=== PATIENT | female | born 1990 | race Caucasian/White ===

== ENCOUNTER 2017-01-13 20:39 | Emergency (ER) | payer OTHER ==
[~2017-01-13] VITALS: Ht 157.5 cm; Wt 36.0 kg
[2017-01-13 20:41] VITALS: BP 129/99; PULSE 95; RESP 16; TEMP 99; O2SAT 100
--- NOTE | 2017-01-13 21:49 | PD ---
HPI Chief Complaint: Eye Problems/Injury Time Seen by Provider: 21:37 Travel History International Travel<30 days: No Contact w/Intl Traveler<30days: No Traveled to known affect area: No History of Present Illness HPI Patient is a 26-year-old female who presents to emergency room with multiple complaints. Patient reports that she thinks that she may have a stye in her left eye, reports that her eye is feeling much better but would like it evaluated. Patient denies any vision changes, denies any headache or dizziness at this time. Patient denies any blurred vision, photophobia, diplopia, drainage, redness, FB sensation, pain or tearing, there are no blind spots or visual changes. Patient denies any Reports that she does not wear glasses or contacts. Patient also reports that her left ear feels itchy, reports that this has been ongoing for the past few months. Reports no drainage, no fever/ chills. Reports "I just want my ear looked at." Patient denies sore throat, patient denies any cough or congestion. Patient with no other complaints. PFSH Past Medical History Medical History: Denies Significant Hx Tetanus Vaccination: < 5 Years ?: Not LMP: CURRENT Past Surgical History Surgical History: No Previous Surgery Social History Alcohol Use: No Tobacco Use: No Substance Use: No Allergies-Medications (Allergen,Severity, Reaction): Coded Allergies: No Known Allergies (Unverified , 01/13/17) Review of Systems General / Constitutional: No: Fever Eyes: No: Diploplia, Blurred Vision, Photophobia, Drainage, Redness, Foreign Body Sensation, Pain, Tearing, Blind Spots, Visual changes, Blindness HENT: Positive: Earache, No: Headaches, Lightheadedness, Sore Throat, Rhinitis , Rhinorrhea, Congestion, Nosebleed, Neck Pain, Masses, Gingival Bleeding, Dental Difficulties, Ear Discharge Cardiovascular: No: Chest Pain or Discomfort Respiratory: No: Shortness of Breath Gastrointestinal: No: Abdominal Pain Genitourinary: No: Dysuria Musculoskeletal: No: Pain Skin: No Rash Neurologic: No: Weakness Psychiatric: No: Depression Endocrine: No: Polydipsia Hematologic/Lymphatic: No: Easy Bruising Physical Exam Narrative GENERAL: Well-nourished, well-developed patient. SKIN: Focused skin assessment warm/dry. HEAD: Normocephalic. EYES: No scleral icterus. No injection or drainage. No hyphema or hypopyon, EOMI, no redness or erythema EARS: NO redness or drainage or signs of infection, TM intact with no erythema or bulging NECK: Supple, trachea midline. No JVD or lymphadenopathy. CARDIOVASCULAR: Regular rate and rhythm without murmurs, gallops, or rubs. RESPIRATORY: Breath sounds equal bilaterally. No accessory muscle use. GASTROINTESTINAL: Abdomen soft, non-tender, nondistended. MUSCULOSKELETAL: No cyanosis, or edema. BACK: Nontender without obvious deformity. No CVA tenderness. Data Data Last Documented VS Vital Signs Date Time Temp Pulse Resp B/P (MAP) Pulse Ox O2 Delivery O2 Flow Rate FiO2 01/13/17 20:41 99.0 95 16 129/99 (109) 100 Room Air MDM Medical Decision Making Medical Screen Exam Complete: Yes Emergency Medical Condition: Yes Medical Record Reviewed: Yes Interpretation(s) Vital Signs Date Time Temp Pulse Resp B/P (MAP) Pulse Ox O2 Delivery O2 Flow Rate FiO2 01/13/17 20:41 99.0 95 16 129/99 (109) 100 Room Air Differential Diagnosis otitis media, viral infection, allergic reaction Narrative Course 26-year-old female with no obvious injury since her eyes, there are no signs of infection to her ears. Patient with a benign exam. Patient will follow up with her pcp and will return to ER as needed. There are no obvious signs of infection at this time. Patient does not require antibiotics. Diagnosis Primary Impression: Ear ache Additional Instructions: Please follow-up with your primary care doctor in 2-3 days Return to ER as needed Disposition: 01 DISCHARGE HOME Condition: Stable Sandra Jimenez DO Jan 13, 2017 21:49
== END 2017-01-13 21:59 | disposition home or self-care (01) ==
LOC: EDSEX 20:39 → NEPD 20:39
DX: H92.09 Otalgia, unspecified ear (principal); H57.9 Unspecified disorder of eye and adnexa
CPT/HCPCS: 99281

== ENCOUNTER 2017-01-15 09:20 | Emergency (ER) | payer OTHER ==
[~2017-01-15] VITALS: Ht 152.4 cm; Wt 42.0 kg
[2017-01-15 09:40] VITALS: BP 128/71; PULSE 92; RESP 17; TEMP 98.2; O2SAT 100
[2017-01-15 10:08] LABS: AUTOMATED NEUTROPHIL # 7.4 TH/MM3 (1.8-7.7); BASOPHIL # 0.1 TH/MM3 (0-0.2); BASOPHIL % 0.7 % (0.0-2.0); EOSINOPHIL # 0.1 TH/MM3 (0-0.4); EOSINOPHIL % 0.8 % (0.0-4.0); HEMATOCRIT 40.7 % (35.0-46.0); HEMO FLAGS DIFF FINAL; LYMPH % 27.3 % (9.0-44.0); MEAN CELL VOLUME 87.9 FL (80.0-100.0); MEAN CORPUSCULAR HEMOGLOBIN 28.8 PG (27.0-34.0); MEAN CORPUSCULAR HGB CONC 32.8 % (32.0-36.0); MONO % 5.1 % (0.0-8.0); NEUT % 66.1 % (16.0-70.0); PLATELET COUNT 315 TH/MM3 (150-450); RED BLOOD COUNT 4.63 MIL/MM3 (4.00-5.30); RED CELL DISTRIBUTION WIDTH 13.7 % (11.6-17.2); WHITE BLOOD COUNT 11.2 TH/MM3 (4.0-11.0)
--- NOTE | 2017-01-15 10:25 | PD ---
HPI Chief Complaint: Alcohol/Drug Intoxication Time Seen by Provider: 10:08 Travel History International Travel<30 days: No Contact w/Intl Traveler<30days: No Traveled to known affect area: No History of Present Illness HPI Patient is a 26-year-old female brought to the emergency room by EMS under act. Reports that patient was found with socks on, reports that she refused to answer any questions. Reports concerns that she appears to be intoxicated. Patient this time denies suicidal or homicidal ideations. Patient denies use of drugs or alcohol. Patient with no complaints at this time. 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) ?: Unknown Past Surgical History Surgical History: No Previous Surgery Social History Alcohol Use: No Tobacco Use: No Substance Use: No Allergies-Medications (Allergen,Severity, Reaction): Coded Allergies: No Known Allergies (Unverified , 01/13/17) Review of Systems General / Constitutional: No: Fever Eyes: No: Visual changes HENT: No: Headaches Cardiovascular: No: Chest Pain or Discomfort Respiratory: No: Shortness of Breath Gastrointestinal: No: Abdominal Pain Genitourinary: No: Dysuria Musculoskeletal: No: Pain Skin: No Rash Neurologic: No: Weakness Psychiatric: No: Depression Endocrine: No: Polydipsia Hematologic/Lymphatic: No: Easy Bruising Physical Exam Narrative GENERAL: NAD SKIN: Focused skin assessment warm/dry. HEAD: Atraumatic. Normocephalic. EYES: Pupils equal and round. No scleral icterus. No injection or drainage. ENT: No nasal bleeding or discharge. Mucous membranes pink and moist. NECK: Trachea midline. No JVD. CARDIOVASCULAR: Regular rate and rhythm. No murmur appreciated. RESPIRATORY: No accessory muscle use. Clear to auscultation. Breath sounds equal bilaterally. GASTROINTESTINAL: Abdomen soft, non-tender, nondistended. Hepatic and splenic margins not palpable. MUSCULOSKELETAL: No obvious deformities. No clubbing. No cyanosis. No edema. NEUROLOGICAL: Awake and alert. No obvious cranial nerve deficits. Motor grossly within normal limits. Normal speech. PSYCHIATRIC: Flat mood and affect, denies si/hi Data Data Last Documented VS Vital Signs Date Time Temp Pulse Resp B/P (MAP) Pulse Ox O2 Delivery O2 Flow Rate FiO2 01/15/17 09:40 98.2 92 17 128/71 (90) 100 Orders Orders Complete Blood Count With Diff (01/15/17 09:30) Comprehensive Metabolic Panel (01/15/17 09:30) Ed Urine Pregnancytest Poc (01/15/17 09:30) Psych Screen (01/15/17 09:30) Drug Screen, Random Urine (01/15/17 09:30) Alcohol (Ethanol) (01/15/17 09:30) Salicylates (Aspirin) (01/15/17 09:30) Tylenol (Acetaminophen) (01/15/17 09:30) Labs Laboratory Tests Test 01/15/17 09:54 White Blood Count 11.2 TH/MM3 Red Blood Count 4.63 MIL/MM3 Hemoglobin 13.3 GM/DL Hematocrit 40.7 % Mean Corpuscular Volume 87.9 FL Mean Corpuscular Hemoglobin 28.8 PG Mean Corpuscular Hemoglobin Concent 32.8 % Red Cell Distribution Width 13.7 % Platelet Count 315 TH/MM3 Mean Platelet Volume 8.4 FL Neutrophils (%) (Auto) 66.1 % Lymphocytes (%) (Auto) 27.3 % Monocytes (%) (Auto) 5.1 % Eosinophils (%) (Auto) 0.8 % Basophils (%) (Auto) 0.7 % Neutrophils # (Auto) 7.4 TH/MM3 Lymphocytes # (Auto) 3.0 TH/MM3 Monocytes # (Auto) 0.6 TH/MM3 Eosinophils # (Auto) 0.1 TH/MM3 Basophils # (Auto) 0.1 TH/MM3 CBC Comment DIFF FINAL Differential Comment Blood Urea Nitrogen 11 MG/DL Creatinine 0.58 MG/DL Random Glucose 102 MG/DL Total Protein 8.5 GM/DL Albumin 4.5 GM/DL Calcium Level 9.2 MG/DL Alkaline Phosphatase 60 U/L Aspartate Amino Transf (AST/SGOT) 85 U/L Alanine Aminotransferase (ALT/SGPT) 39 U/L Total Bilirubin 0.7 MG/DL Sodium Level 138 MEQ/L Potassium Level 4.4 MEQ/L Chloride Level 105 MEQ/L Carbon Dioxide Level 25.4 MEQ/L Anion Gap 8 MEQ/L Estimat Glomerular Filtration Rate 125 ML/MIN Salicylates Level 1.8 MG/DL Acetaminophen Level LESS THAN 2.0 MCG/ML Ethyl Alcohol Level LESS THAN 3 MG/DL MDM Medical Decision Making Medical Screen Exam Complete: Yes Emergency Medical Condition: Yes Medical Record Reviewed: Yes Interpretation(s) Vital Signs Date Time Temp Pulse Resp B/P (MAP) Pulse Ox O2 Delivery O2 Flow Rate FiO2 01/15/17 09:40 98.2 92 17 128/71 (90) 100 Differential Diagnosis Drug abuse Narrative Course Plan to monitor patient as she has no complaints at this time. Denies si/hi. CBC & BMP Diagram 01/15/17 09:54 Total Protein 8.5 H, Albumin 4.5, Calcium Level 9.2, Alkaline Phosphatase 60, Aspartate Amino Transf (AST/SGOT) 85 H, Alanine Aminotransferase (ALT/SGPT) 39, Total Bilirubin 0.7 Tox screen: Salicylate 1.8 Acetaminophen less than 2.0 Ethyl alcohol less than 3.0 Patient refusing to give urine sample. Patient is alert and oriented 3, she is ambulating in the emergency room without any difficulty. Patient has been monitored for 5.5 hours. Patient safe to be discharged to home with outpatient follow up. Patient denies si/hi at discharge. Patient with no complaints. Diagnosis Primary Impression: Drug abuse Patient Instructions: General Instructions Additional Instructions: Please follow up with your primary care doctor in 1-2 days Return to the ER if symptoms worsen or progress Return to the ER as needed Please stop using drugs Disposition: 01 DISCHARGE HOME Condition: Stable Sandra Jimenez DO Jan 15, 2017 10:25
[2017-01-15 10:39] LABS: ALKALINE PHOSPHATASE 60 U/L (45-117); ALT (GPT) 39 U/L (10-53); TOTAL BILIRUBIN ADULT 0.7 MG/DL (0.2-1.0)
[2017-01-15 10:41] LABS: ACETAMINOPHEN LESS THAN 2.0 MCG/ML (10.0-30.0); ALCOHOL LESS THAN 3 MG/DL (0-5); ANION GAP 8 MEQ/L (5-15); AST (GOT) 85 U/L (15-37); BICARBONATE 25.4 MEQ/L (21.0-32.0); BLOOD UREA NITROGEN 11 MG/DL (7-18); CHLORIDE 105 MEQ/L (98-107); GLOMERULAR FILTRATION RATE 125 ML/MIN (>89); POTASSIUM 4.4 MEQ/L (3.5-5.1); SODIUM (NA) 138 MEQ/L (136-145)
== END 2017-01-15 15:22 | disposition home or self-care (01) ==
LOC: NEPD 09:20
DX: F19.10 Other psychoactive substance abuse, uncomplicated (principal)
CPT/HCPCS: 80053; 80307; 85025; 99283

== ENCOUNTER 2017-01-21 16:14 | Emergency (ER) | payer OTHER ==
[~2017-01-21] VITALS: Ht 157.5 cm; Wt 40.0 kg
[2017-01-21 16:16] VITALS: BP 139/79; PULSE 113; RESP 14; TEMP 98.7; O2SAT 100
[2017-01-21] MEDS ORDERED: SODIUM CHLOR 0.9% 1000 ML INJ 1,000 ML IV SCH (17:27)
--- NOTE | 2017-01-21 17:29 | PD ---
HPI Chief Complaint: General Weakness Time Seen by Provider: 17:22 Travel History International Travel<30 days: No Contact w/Intl Traveler<30days: No Traveled to known affect area: No History of Present Illness HPI 26-year-old female here for evaluation of generalized malaise and possible UTI. The patient reports that she has noted blood in her urine which resolved yesterday. She has had chills. No fevers. She denies dysuria or increased urinary frequency. No abdominal pain. She is feeling generalized weakness for the last 2 weeks. She also reports having a nonproductive cough. She denies alcohol or drug use. [facility] Past Medical History Asthma: Yes Tetanus Vaccination: < 5 Years ?: Unknown LMP: 01/08/17 Social History Alcohol Use: No Tobacco Use: No Substance Use: No Allergies-Medications (Allergen,Severity, Reaction): Coded Allergies: No Known Allergies (Unverified , 01/21/17) Reported Meds & Prescriptions Reported Meds & Active Scripts Active No Active Prescriptions or Reported Medications Review of Systems Except as stated in HPI: all other systems reviewed are Neg Physical Exam Narrative GENERAL: Well-developed, well-nourished, comfortable, no apparent distress. SKIN: Focused skin assessment warm/dry. HEAD: Atraumatic. Normocephalic. EYES: Pupils equal and round. No scleral icterus. No injection or drainage. ENT: Mucous membranes pink and moist. NECK: Trachea midline. No JVD. CARDIOVASCULAR: Regular rate and rhythm. RESPIRATORY: No accessory muscle use. Clear to auscultation. Breath sounds equal bilaterally. GASTROINTESTINAL: Abdomen soft, non-tender, nondistended. MUSCULOSKELETAL: No obvious deformities. No clubbing. No cyanosis. No edema. NEUROLOGICAL: Awake and alert. No obvious cranial nerve deficits. Motor grossly within normal limits. Normal speech. PSYCHIATRIC: Appropriate mood and affect; insight and judgment normal. Data Data Last Documented VS Vital Signs Date Time Temp Pulse Resp B/P (MAP) Pulse Ox O2 Delivery O2 Flow Rate FiO2 01/21/17 18:52 98.4 93 18 144/72 (96) 99 Room Air Orders Orders Complete Blood Count With Diff (01/21/17 17:27) Comprehensive Metabolic Panel (01/21/17 17:27) Urinalysis - C+S If Indicated (01/21/17 17:27) Iv Access Insert/Monitor (01/21/17 17:27) Ecg Monitoring (01/21/17 17:27) Oximetry (01/21/17 17:27) Sodium Chlor 0.9% 1000 Ml Inj (Ns 1000 M (01/21/17 17:27) Sodium Chloride 0.9% Flush (Ns Flush) (01/21/17 17:30) Ed Urine Pregnancytest Poc (01/21/17 17:27) Drug Screen, Random Urine (01/21/17 17:) Sodium Chlor 0.9% 1000 Ml Inj (Ns 1000 M (01/21/17 17:30) Chest, Single Ap (01/21/17 ) Influenzae A/B Antigen (01/21/17 17:29) Labs Laboratory Tests Test 01/21/17 17:45 White Blood Count 9.8 TH/MM3 Red Blood Count 4.41 MIL/MM3 Hemoglobin 13.8 GM/DL Hematocrit 38.8 % Mean Corpuscular Volume 87.9 FL Mean Corpuscular Hemoglobin 31.4 PG Mean Corpuscular Hemoglobin Concent 35.7 % Red Cell Distribution Width 14.1 % Platelet Count 333 TH/MM3 Mean Platelet Volume 7.8 FL Neutrophils (%) (Auto) 60.3 % Lymphocytes (%) (Auto) 27.6 % Monocytes (%) (Auto) 8.3 % Eosinophils (%) (Auto) 2.7 % Basophils (%) (Auto) 1.1 % Neutrophils # (Auto) 5.9 TH/MM3 Lymphocytes # (Auto) 2.7 TH/MM3 Monocytes # (Auto) 0.8 TH/MM3 Eosinophils # (Auto) 0.3 TH/MM3 Basophils # (Auto) 0.1 TH/MM3 CBC Comment DIFF FINAL Differential Comment Urine Color YELLOW Urine Turbidity CLEAR Urine pH 6.5 Urine Specific [place] 1.022 Urine Protein TRACE mg/dL Urine Glucose (UA) NEG mg/dL Urine Ketones NEG mg/dL Urine Occult Blood TRACE Urine Nitrite NEG Urine Bilirubin NEG Urine Urobilinogen LESS THAN 2.0 MG/DL Urine Leukocyte Esterase NEG Urine WBC 1 /hpf Urine Squamous Epithelial Cells 2 /hpf Urine Mucus FEW /lpf Microscopic Urinalysis Comment CULT NOT INDICATED Blood Urea Nitrogen 12 MG/DL Creatinine 0.61 MG/DL Random Glucose 101 MG/DL Total Protein 7.3 GM/DL Albumin 3.9 GM/DL Calcium Level 9.0 MG/DL Alkaline Phosphatase 51 U/L Aspartate Amino Transf (AST/SGOT) 22 U/L Alanine Aminotransferase (ALT/SGPT) 25 U/L Total Bilirubin 0.2 MG/DL Sodium Level 140 MEQ/L Potassium Level 4.0 MEQ/L Chloride Level 106 MEQ/L Carbon Dioxide Level 24.8 MEQ/L Anion Gap 9 MEQ/L Estimat Glomerular Filtration Rate 118 ML/MIN Urine Opiates Screen NEG Urine Barbiturates Screen NEG Urine Amphetamines Screen NEG Urine Benzodiazepines Screen NEG Urine Cocaine Screen NEG Urine Cannabinoids Screen POS MDM Medical Decision Making Medical Screen Exam Complete: Yes Emergency Medical Condition: Yes Medical Record Reviewed: Yes Differential Diagnosis Metabolic abnormality, anemia, UTI, viral illness Narrative Course Vital signs reviewed. Heart rate in triage was 113, repeat in the room is 90. Otherwise vitals are within normal limits. CBC is unremarkable. CMP is unremarkable. Urine drug screen is positive for cannabinoids. UA is not suggestive of UTI. There is trace occult blood. Influenza is negative. Chest x-ray shows no acute disease. Patient was made aware of all findings. She is eager to be discharged home stating that she has things to do. At this point she is stable for discharge home with further workup as an outpatient. She was informed on when to return to the emergency department. She verbalizes understanding and agreement with plan. Diagnosis Primary Impression: Generalized weakness Referrals: [facility] 3 days Primary Care Physician 3 days Additional Instructions: Follow-up with a primary care physician this week. Return to the emergency department for worsening symptoms or any other concerns. Scripts No Active Prescriptions or Reported Meds Disposition: 01 DISCHARGE HOME Condition: Stable Edilberto Reeves MD Jan 21, 2017 17:29
[2017-01-21] MEDS ORDERED: SODIUM CHLORIDE 0.9% FLUSH 10 ML FLUSH IV FLUSH PRN (17:30)
[2017-01-21] MEDS ORDERED: SODIUM CHLOR 0.9% 1000 ML INJ 1,000 ML IV ONE (17:30)
[2017-01-21 18:01] LABS: AUTOMATED NEUTROPHIL # 5.9 TH/MM3 (1.8-7.7); BASOPHIL # 0.1 TH/MM3 (0-0.2); BASOPHIL % 1.1 % (0.0-2.0); EOSINOPHIL # 0.3 TH/MM3 (0-0.4); EOSINOPHIL % 2.7 % (0.0-4.0); HEMATOCRIT 38.8 % (35.0-46.0); HEMO FLAGS DIFF FINAL; LYMPH % 27.6 % (9.0-44.0); LYMPHOCYTE # 2.7 TH/MM3 (1.0-4.8); MEAN CELL VOLUME 87.9 FL (80.0-100.0); MEAN CORPUSCULAR HEMOGLOBIN 31.4 PG (27.0-34.0); MEAN CORPUSCULAR HGB CONC 35.7 % (32.0-36.0); MONO % 8.3 % (0.0-8.0); NEUT % 60.3 % (16.0-70.0); PLATELET COUNT 333 TH/MM3 (150-450); RED BLOOD COUNT 4.41 MIL/MM3 (4.00-5.30); RED CELL DISTRIBUTION WIDTH 14.1 % (11.6-17.2); WHITE BLOOD COUNT 9.8 TH/MM3 (4.0-11.0)
[2017-01-21 18:10] LABS: BLOOD, URINE TRACE (NEG); COMMENT (UR) CULT NOT INDICATED; CULTURE IF INDICATED CULT NOT INDICATED; GLUCOSE,URINE NEG (NEG); KETONE, URINE NEG (NEG); MUCUS URINE FEW /lpf (OCC); NITRITE,URINE NEG (NEG); PH, URINE 6.5 (5.0-8.5); SQUAMOUS EPITHELIAL CELL URINE 2 /hpf (0-5); URINE COLOR YELLOW (YELLW/STRAW)
--- NOTE | 2017-01-21 18:21 | RADRPT ---
EXAM DATE/TIME: 01/21/2017 17:44 [place] COMPARISON: No previous studies available for comparison. INDICATIONS : Fever, weakness, shortness of breath. MEDICAL HISTORY : Asthma. SURGICAL HISTORY : None. ENCOUNTER: Initial ACUITY: 3 days PAIN SCORE: 4/10 LOCATION: Bilateral chest FINDINGS: A single view of the chest demonstrates the lungs to be symmetrically aerated without evidence of mas s, infiltrate or effusion. The cardiomediastinal contours are unremarkable. Osseous structures are intact. CONCLUSION: Normal examination. Pipo Carlisle Jr., MD on January 21, 2017 at 18:19 Board Certified Radiologist. This report was verified electronically.
[2017-01-21 18:24] LABS: ALT (GPT) 25 U/L (10-53); ANION GAP 9 MEQ/L (5-15); AST (GOT) 22 U/L (15-37); BICARBONATE 24.8 MEQ/L (21.0-32.0); BLOOD UREA NITROGEN 12 MG/DL (7-18); CHLORIDE 106 MEQ/L (98-107); GLOMERULAR FILTRATION RATE 118 ML/MIN (>89); SODIUM (NA) 140 MEQ/L (136-145)
[2017-01-21 18:27] LABS: ALKALINE PHOSPHATASE 51 U/L (45-117); TOTAL BILIRUBIN ADULT 0.2 MG/DL (0.2-1.0)
[2017-01-21 18:52] VITALS: BP 144/72; PULSE 90; PULSE 93; RESP 18; TEMP 98.4; O2SAT 98; O2SAT 99
== END 2017-01-21 19:34 | disposition home or self-care (01) ==
LOC: NEPD 16:14
DX: R53.1 Weakness (principal); R05 Cough; J45.909 Unspecified asthma, uncomplicated
CPT/HCPCS: 71010; 80053; 80307; 81001; 84703; 85025; 87804; 99284

== ENCOUNTER 2017-08-29 21:06 | Inpatient (IN) | payer SELFPAY ==
[~2017-08-29] VITALS: Ht 157.5 cm; Wt 48.7 kg
[2017-08-29 21:09] VITALS: BP 126/106; PULSE 68; RESP 20; TEMP 97.2; O2SAT 100
[2017-08-29] MEDS ORDERED: SODIUM CHLOR 0.9% 1000 ML INJ 1,000 ML IV ONE ×2 (21:21→23:30)
[2017-08-29] MEDS ORDERED: SODIUM CHLORIDE 0.9% FLUSH 10 ML FLUSH IVF PRN (21:30)
[2017-08-29] MEDS ORDERED: METOCLOPRAMIDE HCL 10 MG/2 ML VIAL IV PUSH ONE (21:30)
--- NOTE | 2017-08-29 21:31 | PD ---
HPI Chief Complaint: OD/ Ingestion Time Seen by Provider: 21:13 Travel History International Travel<30 days: No Contact w/Intl Traveler<30days: No Traveled to known affect area: No History of Present Illness HPI The patient is 26 year old female who presents to the [facility] emergency department with a history of overdosing on an unknown medication that she reports is a non-aspirin medication that was prescribed to a friend sometime earlier today, estimated between 5 and 6 hours ago. She suspects that she took between 10 and 12 tablets. Her partner came home from work and found her with a decreased level of consciousness with nausea vomiting. She admitted to taking the medication, therefore her partner brought her in. She denies any depression or suicidal ideations. She reports that she had a headache and was trying to relieve the headache. The patient on arrival is noted to have a decreased level of consciousness with nausea and vomiting on arrival. The patient reports having shortness of breath. The patient was placed on pulse oximetry and is saturating 99-100% on room air. On review of systems otherwise , the patient denies having any known recent fevers, cough or congestion, neck pain, chest pain, shortness of breath, recent diarrhea, urinary symptoms, or other neurologic symptoms. LMP: Sometime within the last month PFSH Past Medical History Narrative Medical The patient's past medical history is significant for asthma, history of gallbladder problems a year ago. Asthma: Yes Past Surgical History Narrative Surgical The patient's past surgical history is reportedly none. Social History Alcohol Use: No Tobacco Use: Yes (1 cigarette every 3-4 days) Substance Use: No Allergies-Medications (Allergen,Severity, Reaction): Coded Allergies: No Known Allergies (Unverified , 08/29/17) Reported Meds & Prescriptions Reported Meds & Active Scripts Active No Active Prescriptions or Reported Medications Review of Systems Except as stated in HPI: all other systems reviewed are Neg General / Constitutional: No: Fever Eyes: No: Visual changes HENT: Positive: Headaches, No: Neck Stiffness, Neck Pain Cardiovascular: No: Chest Pain or Discomfort Respiratory: Positive: Shortness of Breath Gastrointestinal: Positive: Nausea, Vomiting, No: Abdominal Pain Genitourinary: No: Dysuria Musculoskeletal: No: Pain Skin: No Rash Neurologic: Positive: Weakness (Generalized weakness), Change in Mentation, No : Focal Abnormalities, Slurred Speech, Sensory Disturbance Psychiatric: No: Depression Endocrine: No: Polydipsia Hematologic/Lymphatic: No: Easy Bruising Physical Exam Narrative General: The patient is a well-developed well-nourished female, actively vomiting on my arrival to the room. Head and Neck exam: Head is normocephalic atraumatic. Eyes: EOMI, pupils are equal round and reactive to light. Nose: Midline septum with pink mucous membranes Mouth: Dentition unremarkable. Moist mucus membranes. Posterior oropharynx is not erythematous. No tonsillar hypertrophy. Uvula midline. Airway patent. Neck: No palpable lymphadenopathy. No nuchal rigidity. No thyromegaly. Cardiovascular: Regular rate and rhythm without murmurs, gallops, or rubs. No pulse deficit to the extremities on simultaneous auscultation and palpation of her radial artery. Lungs: Clear to auscultation bilaterally. No wheezes, rhonchi, or rales. Abdomen: Soft, with midepigastric abdominal tenderness on palpation, no other tenderness on palpation of the other quadrants of the abdomen. No guarding, rebound, or rigidity. Normal bowel sounds are audible. No tenderness on palpation of McBurney's point. Negative Villalobos sign. Extremities: No clubbing, cyanosis, or edema. 2+ pulses in all 4 extremities. No calf tenderness on palpation. Back: No spinous process tenderness to palpation. The patient reports left-sided CVA tenderness on palpation. Neurologic Exam: The patient is drowsy on arrival, intermittently dry heaving. The patient has cranial nerves II through XII intact, strength is 4/5 with generalized weakness in all 4 extremities. Intact sensation over all dermatomes. Skin Exam: No rash noted. Intact skin that is warm and dry. Data Data Last Documented VS Vital Signs Date Time Temp Pulse Resp B/P (MAP) Pulse Ox O2 Delivery O2 Flow Rate FiO2 08/29/17 21:24 20 100 Room Air 08/29/17 21:09 97.2 68 126/106 (113) Orders Orders Electrocardiogram (08/29/17 21:21) Complete Blood Count With Diff (08/29/17 21:21) Comprehensive Metabolic Panel (08/29/17 21:21) Prothrombin Time / Inr (Pt) (08/29/17 21:21) Act Partial Throm Time (Ptt) (08/29/17 21:21) Osmolality,Serum (08/29/17 21:21) Osmolality, Urine (08/29/17 21:21) Urinalysis - C+S If Indicated (08/29/17 21:21) Chest, Single Ap (08/29/17 21:21) Ct Brain W/O Iv Contrast(Rout) (08/29/17 21:21) Blood Glucose (08/29/17 21:21) Iv Access Insert/Monitor (08/29/17 21:21) Cath For Specimen (08/29/17 21:21) Ecg Monitoring (08/29/17 21:21) Oximetry (08/29/17 21:21) Sodium Chloride 0.9% Flush (Ns Flush) (08/29/17 21:30) Sodium Chlor 0.9% 1000 Ml Inj (Ns 1000 M (08/29/17 21:21) Drug Screen, Random Urine (08/29/17 21:21) Alcohol (Ethanol) (08/29/17 21:21) Salicylates (Aspirin) (08/29/17 21:21) Tylenol (Acetaminophen) (08/29/17 21:21) Metoclopramide Inj (Reglan Inj) (08/29/17 21:30) Sodium Chlor 0.9% 1000 Ml Inj (Ns 1000 M (08/29/17 23:30) Acetylcysteine Inj (Acetadote Inj) (08/29/17 23:45) Acetylcysteine Inj (Acetadote Inj) (08/30/17 00:57) Acetylcysteine Inj (Acetadote Inj) (08/30/17 05:04) Magnesium (Mg) (08/29/17 23:36) Admit Order (Ed Use Only) (08/29/17 23:51) Labs Laboratory Tests Test 08/29/17 21:45 08/29/17 23:10 White Blood Count 10.3 TH/MM3 Red Blood Count 5.08 MIL/MM3 Hemoglobin 14.1 GM/DL Hematocrit 42.8 % Mean Corpuscular Volume 84.3 FL Mean Corpuscular Hemoglobin 27.7 PG Mean Corpuscular Hemoglobin Concent 32.9 % Red Cell Distribution Width 14.6 % Platelet Count 267 TH/MM3 Mean Platelet Volume 8.6 FL Neutrophils (%) (Auto) 83.3 % Lymphocytes (%) (Auto) 9.2 % Monocytes (%) (Auto) 7.1 % Eosinophils (%) (Auto) 0.0 % Basophils (%) (Auto) 0.4 % Neutrophils # (Auto) 8.6 TH/MM3 Lymphocytes # (Auto) 0.9 TH/MM3 Monocytes # (Auto) 0.7 TH/MM3 Eosinophils # (Auto) 0.0 TH/MM3 Basophils # (Auto) 0.0 TH/MM3 CBC Comment DIFF FINAL Differential Comment Prothrombin Time 12.6 SEC Prothromb Time International Ratio 1.2 RATIO Activated Partial Thromboplast Time 23.1 SEC Blood Urea Nitrogen 7 MG/DL Creatinine 0.77 MG/DL Random Glucose 130 MG/DL Total Protein 8.3 GM/DL Albumin 4.7 GM/DL Calcium Level 9.0 MG/DL Alkaline Phosphatase 58 U/L Aspartate Amino Transf (AST/SGOT) 244 U/L Alanine Aminotransferase (ALT/SGPT) 214 U/L Total Bilirubin 0.6 MG/DL Sodium Level 141 MEQ/L Potassium Level 2.9 MEQ/L Chloride Level 108 MEQ/L Carbon Dioxide Level 18.8 MEQ/L Anion Gap 14 MEQ/L Estimat Glomerular Filtration Rate 90 ML/MIN Serum Osmolality 295 MOSM/KG Magnesium Level 2.0 MG/DL Salicylates Level 2.2 MG/DL Acetaminophen Level 98.6 MCG/ML Ethyl Alcohol Level LESS THAN 3 MG/DL Urine Color YELLOW Urine Turbidity HAZY Urine pH 5.0 Urine Specific [place] 1.038 Urine Protein 30 mg/dL Urine Glucose (UA) 50 mg/dL Urine Ketones 80 OR GREATER mg/dL Urine Occult Blood NEG Urine Nitrite NEG Urine Bilirubin NEG Urine Urobilinogen LESS THAN 2 mg/dL Urine Leukocyte Esterase NEG Urine RBC 3 /hpf Urine WBC 4 /hpf Urine Squamous Epithelial Cells 2 /hpf Urine Mucus MOD /lpf Microscopic Urinalysis Comment CULT NOT INDICATED Urine Opiates Screen NEG Urine Barbiturates Screen NEG Urine Amphetamines Screen NEG Urine Benzodiazepines Screen NEG Urine Cocaine Screen NEG Urine Cannabinoids Screen POS MDM Medical Decision Making Medical Screen Exam Complete: Yes Emergency Medical Condition: Yes Medical Record Reviewed: Yes Differential Diagnosis Intentional versus unintentional overdose, versus Tylenol toxicity, versus aspirin toxicity, versus opiate overdose Narrative Course During the course of the patient's emergency department visit, the patient's history, examination, and differential diagnosis were reviewed with the patient. The patient was placed on a cardiac catheterization technologist with oximetry and frequent blood pressure monitoring. The patient had IV access obtained and blood work sent for analysis. The patient had an EKG done on arrival that shows a sinus bradycardia heart rate 53, QRS duration 80 ms, QTC 485 ms. T waves are inverted in lead II, V1, V3, 1, aVL. QTC borderline prolonged. A Magnesium level has been added to the patient's workup. The patient was initially provided normal saline 1 L IV fluid bolus, Reglan 5 mg IV The patient's laboratory studies were reviewed and remarkable for a white count of 10.3, hemoglobin 14.1, platelets 267 with 83.3 neutrophils, CMP is remarkable for potassium of 2.9, CO2 18.8, glucose 130, serum osmolality is 295 , magnesium level 2, AST 244, ALT 214, total protein is 8.3, INR is 1.2, PT 12.6 , PTT 23.1, urine drug screen is positive for cannabinoids, salicylate is 2.1, acetaminophen level is elevated at 98.6, alcohol level is less than 3. The patient was ordered to have supplementation IV of her hypokalemia with KCl rider by the admitting hospitalist. Radiology studies were reviewed and remarkable for Last Impressions Head CT 08/29/172120 Signed Impressions: CONCLUSION: 1. No acute intracranial abnormalities. Chest X-Ray 08/29/172120 Signed Impressions: CONCLUSION: No active disease. I spoke to Mini and poison control at approximately 11:35 PM. Poison control agreed with the patient being started on Acetadote IV pain and elevated Tylenol level. She recommended that 3 hours prior to the third bag of Acetadote being completed, laboratory studies be drawn again including an acetaminophen level, as the goal is no acetaminophen in her system. The patient's results were discussed with the patient, including the plan of care. I explained that further testing and/ or monitoring is indicated based on the patient's history, examination, and/ or laboratory findings. Therefore, I recommended admission for additional evaluation. The patient expressed understanding and was agreeable with this plan. The patient was admitted to the hospital in guarded condition and [facility]. Critical Care Narrative Aggregate critical care time was 32 minutes. Time to perform other separately billable procedures was not included in the critical care time. My time did not include minutes spent treating any other patients simultaneously or on activities that did not directly contribute to the patient's treatment. The services I provided to this patient were to treat and/or prevent clinically significant deterioration that could result in: Progression of liver failure, versus coagulopathy, versus cardiac arrhythmia from electrolyte derangements I provided critical care services requiring my management, as noted below: Chart data review, documentation time, medication orders and management, vital sign assessments/reviewing monitor data, ordering and reviewing lab tests, ordering and interpreting/reviewing x-rays and diagnostic studies, care of the patient and discussion of the patient with the admitting physicians. Physician Communication Physician Communication The patient's case including history, pertinent physical examination findings, and laboratory studies were discussed with Dr. Mcwilliams. It was agreed that the [facility] Diagnosis Primary Impression: Tylenol overdose Qualified Codes: T39.1X1A - Poisoning by 4-aminophenol derivatives, accidental (unintentional), initial encounter Additional Impression: Tylenol toxicity Qualified Codes: T39.1X1A - Poisoning by 4-aminophenol derivatives, accidental (unintentional), initial encounter Admitting Information Admitting Physician Requests: Admit Scripts No Active Prescriptions or Reported Meds Sofie Buchanan MD Aug 29, 2017 21:31
--- NOTE | 2017-08-29 22:00 | RADRPT ---
EXAM DATE: 08/29/2017 9:34 PM EDT AGE/SEX: 26 years / Female INDICATIONS: AMS CLINICAL DATA: This is the patient's initial encounter. Patient reports that signs and symptoms have been present for 1 day and indicates a pain score of Nonresponsive. MEDICAL/SURGICAL HISTORY: Asthma. Non-responsive. COMPARISON: [facility] [place], 01/21/[place]. . FINDINGS: A single AP view of the chest demonstrates the lungs to be symmetrically aerated without evidence of mass, infiltrate or effusion. The cardiomediastinal contours are unremarkable. Osseous structures a re intact. CONCLUSION: No active disease. Electronically signed by: Marlon Gabriel MD 08/29/2017 9:59 PM EDT
[2017-08-29 22:16] LABS: AUTOMATED NEUTROPHIL # 8.6 TH/MM3 (1.8-7.7); BASOPHIL % 0.4 % (0.0-2.0); HEMATOCRIT 42.8 % (35.0-46.0); HEMOGLOBIN 14.1 GM/DL (11.6-15.3); LYMPH % 9.2 % (9.0-44.0); LYMPHOCYTE # 0.9 TH/MM3 (1.0-4.8); MEAN CELL VOLUME 84.3 FL (80.0-100.0); MEAN CORPUSCULAR HEMOGLOBIN 27.7 PG (27.0-34.0); MEAN CORPUSCULAR HGB CONC 32.9 % (32.0-36.0); MEAN PLATELET VOLUME 8.6 FL (7.0-11.0); MONO % 7.1 % (0.0-8.0); MONOCYTE # 0.7 TH/MM3 (0-0.9); NEUT % 83.3 % (16.0-70.0); PLATELET COUNT 267 TH/MM3 (150-450); RED BLOOD COUNT 5.08 MIL/MM3 (4.00-5.30); RED CELL DISTRIBUTION WIDTH 14.6 % (11.6-17.2); WHITE BLOOD COUNT 10.3 TH/MM3 (4.0-11.0)
[2017-08-29 22:40] LABS: INTERNATIONAL NORMALIZED RATIO 1.2 RATIO; PROTHROMBIN TIME - PATIENT 12.6 SEC (9.8-11.6)
--- NOTE | 2017-08-29 22:51 | RADRPT ---
EXAM DATE: 08/29/2017 10:31 PM EDT AGE/SEX: 26 years / Female INDICATIONS: Altered mental status. CLINICAL DATA: This is the patient's initial encounter. Patient reports that signs and symptoms have been present for 1 day and indicates a pain score of 4/10. MEDICAL/SURGICAL HISTORY: None. None. RADIATION DOSE: 36.01 CTDI (mGy) ; Patient motion COMPARISON: No prior exams available for comparison. TECHNIQUE: CT of the head without contrast. Using automated exposure control and adjustment of the mA and/or kV according to patient size, radiation dose was kept as low as reasonably achievable to ob tain optimal diagnostic quality images. DICOM format image data is available electronically for revi ew and comparison. FINDINGS: Cerebrum: No intracranial mass, hemorrhage or shift. No hydrocephalus. Posterior Fossa: The cerebel lum and brainstem are intact. The 4th ventricle is midline. The cerebellopontine angle is unremarka ble. Extracranial: The visualized portion of the orbits is intact. Skull: The calvaria is intact. No evidence of skull fracture. CONCLUSION: 1. No acute intracranial abnormalities. Electronically signed by: Marlon Gabriel MD 08/29/2017 10:49 PM EDT
[2017-08-29 22:54] LABS: ACETAMINOPHEN 98.6 MCG/ML (10.0-30.0); ALBUMIN 4.7 GM/DL (3.4-5.0); ALKALINE PHOSPHATASE 58 U/L (45-117); ALT (GPT) 214 U/L (10-53); AST (GOT) 244 U/L (15-37); BICARBONATE 18.8 MEQ/L (21.0-32.0); BLOOD UREA NITROGEN 7 MG/DL (7-18); CHLORIDE 108 MEQ/L (98-107); CREATININE 0.77 MG/DL (0.50-1.00); GLOMERULAR FILTRATION RATE 90 ML/MIN (>89); GLUCOSE,RANDOM 130 MG/DL (74-106); SODIUM (NA) 141 MEQ/L (136-145); TOTAL BILIRUBIN ADULT 0.6 MG/DL (0.2-1.0); TOTAL PROTEIN 8.3 GM/DL (6.4-8.2)
[2017-08-29 23:00] VITALS: BP 112/72; PULSE 52; RESP 16; O2SAT 97
[2017-08-29 23:36] LABS: BILIRUBIN, URINE NEG (NEG); BLOOD, URINE NEG (NEG); GLUCOSE,URINE 50 mg/dL (NEG); KETONE, URINE 80 OR GREATER mg/dL (NEG); MUCUS URINE MOD /lpf (OCC); NITRITE,URINE NEG (NEG); SQUAMOUS EPITHELIAL CELL URINE 2 /hpf (0-5); URINE COLOR YELLOW (YELLW/STRAW); URINE LEUKOCYTE ESTERASE NEG (NEG)
[2017-08-29] MEDS ORDERED: ACETYLCYSTEINE IV ONE ×2 (23:45)
[2017-08-29] MEDS ORDERED: WATER IV ONE ×2 (23:45)
[2017-08-29] MEDS ORDERED: DEXTROSE 5% IV ONE ×2 (23:45)
[2017-08-30] VITALS (10 sets, daily range): BP systolic 106–122; BP diastolic 64–77; PULSE 48–85; RESP 15–18; TEMP 98.2–99.5; O2SAT 99–100
[2017-08-30] MEDS ORDERED: MAGNESIUM HYDROXIDE SUSP 30 ML CUP PO PRN (00:30)
[2017-08-30] MEDS ORDERED: BISACODYL 10 MG SUPP RECTAL PRN (00:30)
[2017-08-30] MEDS ORDERED: LACTULOSE SYRUP 20 GM/30 ML CUP PO PRN (00:30)
[2017-08-30] MEDS ORDERED: NALOXONE HCL 0.4 MG/ML AMP IV PUSH PRN (00:30)
[2017-08-30] MEDS ORDERED: SENNOSIDES 8.6 MG TAB PO PRN (00:30)
[2017-08-30] MEDS ORDERED: SODIUM CHLORIDE 0.9% FLUSH 10 ML FLUSH IV FLUSH PRN (00:30)
--- NOTE | 2017-08-30 00:42 | HHI.HP ---
[facility]Staff Admission Diagnosis Tylenol toxicity Diagnoses: Chief Complaint: OD Travel History International Travel<30 Days: No Contact w/Intl Traveler <30 Da: No Traveled to Known Affected Are: No History of Present Illness 26 y/o female with no medical history presented to the ED after ingesting 10-12 non aspirin medication. Patient states she took them because she had a headache , and took all 10-12 at once. She states she did not do this to try and hurt her self, but she did look at her significant other when responding so her story does not sound believable. She key not know the name of the medication she took and does not have the bottle with her. She denies any chest pain, but is complaining of right sided, sharp abdominal, 10/10 with no radiation or associated symptoms. Poison control was contacted and is following. Past Family Social History Past Medical History Patient denies any medical history Past Surgical History Patient denies any surgeries Reported Medications Reported Meds & Active Scripts Active No Active Prescriptions or Reported Medications Allergies: Coded Allergies: No Known Allergies (Unverified , 08/29/17) Active Ordered Medications Current Medications Medications (Trade) Dose Ordered Sig/Susan Route Start Time Stop Time Status Last Admin (NS Flush) 2 ml UNSCH PRN IVF 08/29/17 21:30 Sodium Chloride 1,000 ml @ 1,000 mls/hr Q1H ONCE IV 08/29/17 23:30 08/30/17 00:29 Acetylcysteine 7800 mg/Dextrose 239 ml @ 200 mls/hr ONCE ONCE IV 08/29/17 23:45 08/30/17 00:56 Acetylcysteine 2600 mg/Dextrose 513 ml @ 125 mls/hr ONCE ONCE IV 08/30/17 00:57 08/30/17 05:03 Acetylcysteine 5200 mg/Dextrose 1,026 ml @ 62.5 mls/hr ONCE ONCE IV 08/30/17 05:04 08/30/17 21:28 Family History Patient denies any family history Social History Tobacco use: a few cigarettes a day Alcohol use: Denies Physical Exam Vital Signs Vital Signs Date Time Temp Pulse Resp B/P (MAP) Pulse Ox O2 Delivery O2 Flow Rate FiO2 08/29/17 21:24 20 100 Room Air 08/29/17 21:09 97.2 68 20 126/106 (113) 100 Physical Exam GENERAL: This is a well-nourished, well-developed patient, in no apparent distress. SKIN: No rashes, ecchymoses or lesions. Cool and dry. HEAD: Atraumatic. Normocephalic. No temporal or scalp tenderness. EYES: Pupils equal round and reactive. Extraocular motions intact. CARDIOVASCULAR: Regular rate and rhythm without murmurs, gallops, or rubs. RESPIRATORY: Clear to auscultation. Breath sounds equal bilaterally. No wheezes , rales, or rhonchi. GASTROINTESTINAL: Abdomen soft, RUQ tenderness, non distended. No guarding. MUSCULOSKELETAL: Extremities without clubbing, cyanosis, or edema. No calf tenderness. NEUROLOGICAL: Awake and alert. Normal speech. Laboratory Laboratory Tests Test 08/29/17 21:45 08/29/17 23:10 White Blood Count 10.3 Red Blood Count 5.08 Hemoglobin 14.1 Hematocrit 42.8 Mean Corpuscular Volume 84.3 Mean Corpuscular Hemoglobin 27.7 Mean Corpuscular Hemoglobin Concent 32.9 Red Cell Distribution Width 14.6 Platelet Count 267 Mean Platelet Volume 8.6 Neutrophils (%) (Auto) 83.3 Lymphocytes (%) (Auto) 9.2 Monocytes (%) (Auto) 7.1 Eosinophils (%) (Auto) 0.0 Basophils (%) (Auto) 0.4 Neutrophils # (Auto) 8.6 Lymphocytes # (Auto) 0.9 Monocytes # (Auto) 0.7 Eosinophils # (Auto) 0.0 Basophils # (Auto) 0.0 CBC Comment DIFF FINAL Differential Comment Prothrombin Time 12.6 Prothromb Time International Ratio 1.2 Activated Partial Thromboplast Time 23.1 Blood Urea Nitrogen 7 Creatinine 0.77 Random Glucose 130 Total Protein 8.3 Albumin 4.7 Calcium Level 9.0 Alkaline Phosphatase 58 Aspartate Amino Transf (AST/SGOT) 244 Alanine Aminotransferase (ALT/SGPT) 214 Total Bilirubin 0.6 Sodium Level 141 Potassium Level 2.9 Chloride Level 108 Carbon Dioxide Level 18.8 Anion Gap 14 Estimat Glomerular Filtration Rate 90 Serum Osmolality 295 Salicylates Level 2.2 Acetaminophen Level 98.6 Ethyl Alcohol Level LESS THAN 3 Urine Color YELLOW Urine Turbidity HAZY Urine pH 5.0 Urine Specific [place] 1.038 Urine Protein 30 Urine Glucose (UA) 50 Urine Ketones 80 OR GREATER Urine Occult Blood NEG Urine Nitrite NEG Urine Bilirubin NEG Urine Urobilinogen LESS THAN 2 Urine Leukocyte Esterase NEG Urine RBC 3 Urine WBC 4 Urine Squamous Epithelial Cells 2 Urine Mucus MOD Microscopic Urinalysis Comment CULT NOT INDICATED Urine Opiates Screen NEG Urine Barbiturates Screen NEG Urine Amphetamines Screen NEG Urine Benzodiazepines Screen NEG Urine Cocaine Screen NEG Urine Cannabinoids Screen POS Result Diagram: 08/29/17214408/29/172144 Imaging Last Impressions Head CT 08/29/172120 Signed Impressions: CONCLUSION: 1. No acute intracranial abnormalities. Chest X-Ray 08/29/172120 Signed Impressions: CONCLUSION: No active disease. Caprini VTE Risk Assessment Caprini VTE Risk Assessment: No/Low Risk (score <= 1) Caprini Risk Assessment Model Point Value = 1 Point Value = 2 Point Value = 3 Point Value = 5 Age 41-60 Minor surgery BMI > 25 kg/m2 Swollen legs Varicose veins or History of unexplained or recurrent spontaneous Oral contraceptives or hormone replacement Sepsis (< 1 month) Serious lung disease, including pneumonia (< 1 month) Abnormal pulmonary function Acute myocardial infarction Congestive heart failure (< 1 month) History of inflammatory bowel disease Medical patient at bed rest Age 61-74 Arthroscopic surgery Major open surgery (> 45 min) Laparoscopic surgery (> 45 min) Malignancy Confined to bed (> 72 hours) Immobilizing plaster cast Central venous access Age >= 75 History of VTE Family history of VTE Factor V Leiden Prothrombin [id number] Lupus anticoagulant Anticardiolipin antibodies Elevated serum homocysteine Heparin-induced thrombocytopenia Other congenital or acquired thrombophilia Stroke (< 1 month) Elective arthroplasty Hip, pelvis, or leg fracture Acute spinal cord injury (< 1 month) Prophylaxis Regimen Total Risk Factor Score Risk Level Prophylaxis Regimen 0-1 Low Early ambulation 2 Moderate Order ONE of the following: *Sequential Compression Device (SCD) *Heparin 5000 units SQ BID 3-4 Higher Order ONE of the following medications: *Heparin 5000 units SQ TID *Enoxaparin/Lovenox 40 mg SQ daily (WT < 150 kg, CrCl > 30 mL/min) *Enoxaparin/Lovenox 30 mg SQ daily (WT < 150 kg, CrCl > 10-29 mL/min) *Enoxaparin/Lovenox 30 mg SQ BID (WT < 150 kg, CrCl > 30 mL/min) AND/OR *Sequential Compression Device (SCD) 5 or more Highest Order ONE of the following medications: *Heparin 5000 units SQ TID (Preferred with Epidurals) *Enoxaparin/Lovenox 40 mg SQ daily (WT < 150 kg, CrCl > 30 mL/min) *Enoxaparin/Lovenox 30 mg SQ daily (WT < 150 kg, CrCl > 10-29 mL/min) *Enoxaparin/Lovenox 30 mg SQ BID (WT < 150 kg, CrCl > 30 mL/min) AND *Sequential Compression Device (SCD) Assessment and Plan Assessment and Plan 26 y/o female with no medical history presented to the ED after ingesting 10-12 non aspirin medication. Tylenol toxicity, with associated transaminitis, questionable intentional EKG shows sinus bradycardia -Poison control suggested Acetadote IV, recheck Tylenol level 3 hours prior to the third bag of Acetadote being completed. -Consult psych for evaluation -Serial EKGs -Trend LFTs -Morphine IV for pain management -Monitor telemetry Hypokalemia, potassium 2.9 -Supplementation ordered, BMP in am, replace as needed DVT prophylaxis: SCDs Discussed Condition With Patient and RN Physician Certification 2 Midnight Certification Type: Admission for Inpatient Services Order for Inpatient Services The services are ordered in accordance with Medicare regulations or non- Medicare payer requirements, as applicable. In the case of services not specified as inpatient-only, they are appropriately provided as inpatient services in accordance with the 2-midnight benchmark. Estimated LOS (days): 2 days is the estimated time the patient will need to remain in the hospital, assuming treatment plan goals are met and no additional complications. Post-Hospital Plan: Home Kim Cohen Aug 30, 2017 00:42
[2017-08-30] MEDS ORDERED: ONDANSETRON ODT 4 MG TAB PO PRN (00:45)
[2017-08-30] MEDS ORDERED: MORPHINE SULFATE 4 MG/ML INJ IV PUSH PRN (00:45)
[2017-08-30] MEDS ORDERED: DEXTROSE 5% IV ONE ×4 (00:57→05:04)
[2017-08-30] MEDS ORDERED: WATE IV ONE ×4 (00:57→05:04)
[2017-08-30] MEDS ORDERED: ACETYLCYSTEINE IV ONE ×4 (00:57→05:04)
[2017-08-30] MEDS: POTASSIUM CHLOR 20 MEQ PREMIX 100 ML IV SCH ×2 (02:30→03:49)
[2017-08-30 05:33] LABS: AUTOMATED NEUTROPHIL # 12.1 TH/MM3 (1.8-7.7); BASOPHIL % 0.1 % (0.0-2.0); HEMATOCRIT 40.7 % (35.0-46.0); LYMPH % 6.5 % (9.0-44.0); LYMPHOCYTE # 0.9 TH/MM3 (1.0-4.8); MEAN CELL VOLUME 85.8 FL (80.0-100.0); MEAN CORPUSCULAR HEMOGLOBIN 27.4 PG (27.0-34.0); MEAN PLATELET VOLUME 8.8 FL (7.0-11.0); MONO % 5.6 % (0.0-8.0); MONOCYTE # 0.8 TH/MM3 (0-0.9); NEUT % 87.8 % (16.0-70.0); PLATELET COUNT 215 TH/MM3 (150-450); RED BLOOD COUNT 4.74 MIL/MM3 (4.00-5.30); RED CELL DISTRIBUTION WIDTH 15.2 % (11.6-17.2); WHITE BLOOD COUNT 13.8 TH/MM3 (4.0-11.0)
[2017-08-30 05:59] LABS: ALBUMIN 3.7 GM/DL (3.4-5.0); ALKALINE PHOSPHATASE 44 U/L (45-117); ALT (GPT) 259 U/L (10-53); AST (GOT) 249 U/L (15-37); BICARBONATE 16.8 MEQ/L (21.0-32.0); BLOOD UREA NITROGEN 6 MG/DL (7-18); CALCIUM 8.2 MG/DL (8.5-10.1); CHLORIDE 107 MEQ/L (98-107); CREATININE 0.73 MG/DL (0.50-1.00); GLOMERULAR FILTRATION RATE 96 ML/MIN (>89); GLUCOSE,RANDOM 176 MG/DL (74-106); SODIUM (NA) 139 MEQ/L (136-145); TOTAL PROTEIN 6.8 GM/DL (6.4-8.2)
[2017-08-30] MEDS: DOCUSATE SODIUM 50 MG/SENNA 8.6 MG TAB PO SCH ×2 (07:47→21:00)
[2017-08-30] MEDS: SODIUM CHLORIDE 0.9% FLUSH 10 ML FLUSH IV FLUSH SCH ×2 (07:53→21:04)
--- NOTE | 2017-08-30 11:07 | HHI.PR ---
Addendum to Inpatient Note Addendum Reason: Additional Documentation Additional Information Pt seen. C/o mild but improved abd pain. tolerating po intake. D/w poison control, if coags or LFTs don't show improvement near end of third (16 hr) mucomyst bag to then administer an additional 16 hr bag. Currently pt is on her 2nd bag (8 hr duration). Also ordered viral hepatitis profile. Vasiliy Ceja MD Aug 30, 2017 11:07
--- NOTE | 2017-08-30 15:17 | PD.PSY.CON ---
Provisional Diagnosis Admission Date Aug 29, 2017 at 23:52 Hinkle I. Adjustment disorder with depressed mood, cannabis use disorder, history of substance abuse Hinkle II. Deferred Hinkle III. Tylenol overdose History of Present Illness Service Psychiatry Consult Requested By ER Reason for Consult Overdose Primary Care Physician Non-Staff HPI The patient is 26 woman, domiciled with her significant other in [facility], unemployed, with psychiatric history of substance abuse, anxiety, no previous psychiatric hospitalizations, no previous suicide attempts, with no medical history presented to the ED after ingesting 10-12 non aspirin medication. Patient states she took them because she had a headache, and took all 10-12 at once. She states she did not do this to try and hurt her self, but she did look at her significant other when responding so her story does not sound believable. She key not know the name of the medication she took and does not have the bottle with her. She denies any chest pain, but is complaining of right sided, sharp abdominal, 10/10 with no radiation or associated symptoms. Poison control was contacted and is following. The patient was consulted to psychiatry to address a potential overdose with suicidal intentions. On psychiatric evaluation I find a patient that is calm, cooperative, interactive with her girlfriend. The patient reports being a good mood, she says that last night she was having really bad headache, she took the medication with intentions to treat her migraine. The patient denies suicidal and homicidal ideation, she denies visual and auditory hallucinations. The patient reports that she has been quite happy in the last days, looking for a job, focus in the future, has stopped using drugs, uses marijuana sometimes. Girlfriend, Pia Otero, a bedside, is in agreement that patient did not try to commit suicide and she feels more and safe in taking the patient back home and don't think the patient needs psychiatric admission. The patient is fully oriented 3, logical , coherent and relevant. Reports occasional use of marijuana. Review of Systems Constitutional: DENIES: Diaphoretic episodes, Fatigue, Fever, Weight gain, Weight loss, Chills, Dizziness, Change in appetite, Night Sweats Endocrine: DENIES: Abnorml menstrual pattern, Heat/cold intolerance, Polydipsia , Polyuria, Polyphagia Eyes: DENIES: Blurred vision, Diplopia, Eye inflammation, Eye pain, Vision loss , Photosensitivity, Double Vision Ears, nose, mouth, throat: DENIES: Tinnitus, Hearing loss, Vertigo, Nasal discharge, Oral lesions, Throat pain, Hoarseness, Ear Pain, Running Nose, Epistaxis, Sinus Pain, Toothache, Odynophagia Respiratory: DENIES: Apneas, Cough, Snoring, Wheezing, Hemoptysis, Sputum production, Shortness of breath Cardiovascular: DENIES: Chest pain, Palpitations, Syncope, Dyspnea on Exertion , PND, Lower Extremity Edema, Orthopnea, Claudication Gastrointestinal: DENIES: Abdominal pain, Black stools, Bloody stools, Constipation, Diarrhea, Nausea, Vomiting, Difficulty Swallowing, Anorexia Genitourinary: DENIES: Abnormal vaginal bleeding, Dysmenorrhea, Dyspareunia, Sexual dysfunction, Urinary frequency, Urinary incontinence, Urgency, Hematuria , Dysuria, Nocturia, Vaginal discharge Musculoskeletal: DENIES: Joint pain, Muscle aches, Stiffness, Joint Swelling, Back pain, Neck pain Integumentary: DENIES: Abnormal pigmentation, Pruritus, Rash, Nail changes, Breast masses, Breast skin changes, Nipple discharge Hematologic/lymphatic: DENIES: Bruising, Lymphadenopathy Immunologic/allergic: DENIES: Eczema, Urticaria Neurologic: DENIES: Abnormal gait, Headache, Localized weakness, Paresthesias, Seizures, Speech Problems, Tremor, Poor Balance Psychiatric: DENIES: Anxiety, Confusion, Mood changes, Depression, Hallucinations, Agitation, Suicidal Ideation, Homicidal Ideation, Delusions Past Family Social History Uncoded Allergies: Apple Juice (Adverse Reaction, Intermediate, Nausea/Vomiting, 08/30/17) also SOB No Active Prescriptions or Reported Meds Current Medications Medications (Trade) Dose Ordered Sig/Susan Route Start Time Stop Time Status Last Admin Acetylcysteine 5200 mg/Dextrose 1,026 ml @ 62.5 mls/hr ONCE ONCE IV 08/30/17 05:04 08/30/17 21:28 08/30/17 06:50 (NS Flush) 2 ml UNSCH PRN IV FLUSH 08/30/17 00:30 (NS Flush) 2 ml BID IV FLUSH 08/30/17 09:00 08/30/17 07:53 (Zofran Odt) 4 mg Q6H PRN PO 08/30/17 00:45 08/30/17 01:58 (Narcan Inj) 0.4 mg UNSCH PRN IV PUSH 08/30/17 00:30 (Amanda-Colace) 1 tab BID PO 08/30/17 09:00 (Milk Of Magnesia Liq) 30 ml Q12H PRN PO 08/30/17 00:30 (Senokot) 17.2 mg Q12H PRN PO 08/30/17 00:30 (Dulcolax Supp) 10 mg DAILY PRN RECTAL 08/30/17 00:30 (Lactulose Liq) 30 ml DAILY PRN PO 08/30/17 00:30 (Morphine Inj) 2 mg Q4H PRN IV PUSH 08/30/17 00:45 Family Psych History No family psychiatric he Social History The patient was born and raised in [place], she lives in [facility] with her girlfriend, single, unemployed, highest level of education is [employer] Patient's Strengths (min. 2) Support of her girlfriend Physical Exam No tremors, no EPS, no psychomotor retardation or agitation, no gait disturbance Vital Signs Vital Signs Date Time Temp Pulse Resp B/P (MAP) Pulse Ox O2 Delivery O2 Flow Rate FiO2 08/30/17 12:24 98.9 69 18 122/77 (92) 99 08/30/17 01:20 Room Air I/O 08/30/17 08/30/17 08/30/17 07:59 15:59 23:59 Intake Total 240 ml Balance 240 ml Lab Results Test 08/29/17 21:45 08/29/17 23:10 08/30/17 04:43 08/30/17 11:40 White Blood Count 10.3 TH/MM3 13.8 TH/MM3 Red Blood Count 5.08 MIL/MM3 4.74 MIL/MM3 Hemoglobin 14.1 GM/DL 13.0 GM/DL Hematocrit 42.8 % 40.7 % Mean Corpuscular Volume 84.3 FL 85.8 FL Mean Corpuscular Hemoglobin 27.7 PG 27.4 PG Mean Corpuscular Hemoglobin Concent 32.9 % 32.0 % Red Cell Distribution Width 14.6 % 15.2 % Platelet Count 267 TH/MM3 215 TH/MM3 Mean Platelet Volume 8.6 FL 8.8 FL Neutrophils (%) (Auto) 83.3 % 87.8 % Lymphocytes (%) (Auto) 9.2 % 6.5 % Monocytes (%) (Auto) 7.1 % 5.6 % Eosinophils (%) (Auto) 0.0 % 0.0 % Basophils (%) (Auto) 0.4 % 0.1 % Neutrophils # (Auto) 8.6 TH/MM3 12.1 TH/MM3 Lymphocytes # (Auto) 0.9 TH/MM3 0.9 TH/MM3 Monocytes # (Auto) 0.7 TH/MM3 0.8 TH/MM3 Eosinophils # (Auto) 0.0 TH/MM3 0.0 TH/MM3 Basophils # (Auto) 0.0 TH/MM3 0.0 TH/MM3 CBC Comment DIFF FINAL DIFF FINAL Differential Comment Prothrombin Time 12.6 SEC Prothromb Time International Ratio 1.2 RATIO Activated Partial Thromboplast Time 23.1 SEC Blood Urea Nitrogen 7 MG/DL 6 MG/DL Creatinine 0.77 MG/DL 0.73 MG/DL Random Glucose 130 MG/DL 176 MG/DL Total Protein 8.3 GM/DL 6.8 GM/DL Albumin 4.7 GM/DL 3.7 GM/DL Calcium Level 9.0 MG/DL 8.2 MG/DL Alkaline Phosphatase 58 U/L 44 U/L Aspartate Amino Transf (AST/SGOT) 244 U/L 249 U/L Alanine Aminotransferase (ALT/SGPT) 214 U/L 259 U/L Total Bilirubin 0.6 MG/DL 1.0 MG/DL Sodium Level 141 MEQ/L 139 MEQ/L Potassium Level 2.9 MEQ/L 4.0 MEQ/L Chloride Level 108 MEQ/L 107 MEQ/L Carbon Dioxide Level 18.8 MEQ/L 16.8 MEQ/L Anion Gap 14 MEQ/L 15 MEQ/L Estimat Glomerular Filtration Rate 90 ML/MIN 96 ML/MIN Serum Osmolality 295 MOSM/KG Magnesium Level 2.0 MG/DL Human Chorionic Gonadotropin, Quant LESS THAN 1 MIU/ML Salicylates Level 2.2 MG/DL Acetaminophen Level 98.6 MCG/ML Ethyl Alcohol Level LESS THAN 3 MG/DL Urine Color YELLOW Urine Turbidity HAZY Urine pH 5.0 Urine Specific Hydro 1.038 Urine Protein 30 mg/dL Urine Glucose (UA) 50 mg/dL Urine Ketones 80 OR GREATER mg/dL Urine Occult Blood NEG Urine Nitrite NEG Urine Bilirubin NEG Urine Urobilinogen LESS THAN 2 mg/dL Urine Leukocyte Esterase NEG Urine RBC 3 /hpf Urine WBC 4 /hpf Urine Squamous Epithelial Cells 2 /hpf Urine Mucus MOD /lpf Microscopic Urinalysis Comment CULT NOT INDICATED Urine Osmolality 987 MOSM/KG Urine Opiates Screen NEG Urine Barbiturates Screen NEG Urine Amphetamines Screen NEG Urine Benzodiazepines Screen NEG Urine Cocaine Screen NEG Urine Cannabinoids Screen POS Hepatitis A IgM Antibody NONREACTIVE Hepatitis B Surface Antigen NONREACTIVE Hepatitis B Core IgM Antibody NONREACTIVE Hepatitis C IgG Antibody NONREACTIVE Mental Status Examination Appearance: Appropriate Consciousness: Alert Orientation: x4 Motor Activity: Normal gait Speech: Unremarkable Language: Adequate Fund of Knowledge: Adequate Attention and Concentration: Adequate Memory: Unremarkable Mood: Appropriate Affect: Appropriate Thought Process & Associations: Intact Thought Content: Appropriate Hallucination Type: None Delusion Type: None Suicidal Ideation: No Suicidal Plan: No Suicidal Intention: No Homicidal Ideation: No Homicidal Plan: No Homicidal Intention: No Insight: Adequate Judgment: Adequate Assessment & Plan Problem List: (1) Adjustment disorder with depressed mood ICD Codes: F43.21 - Adjustment disorder with depressed mood Assessment & Plan: Psychiatric evaluation today the patient does not present any neuropsychiatric symptoms that require immediate psychiatric intervention. The patient denies symptomatology of depression, anxiety, ramila and psychosis. The patient denies suicidal and homicidal ideation, denies visual and auditory hallucinations. The patient is persisting stated that her recent overdose was no with suicidal intentions and was just to treat her headache. Her girlfriend at bedside confirms that the patient has not been depressed, that she has been doing okay, and she feels safe taking her back home. Extensive support, motivational psych education provided. No psychotropics recommended. Patient does not meet criteria for involuntary psychiatric admission. Assessment & Plan Estimated LOS: Angel Geiger MD Aug 30, 2017 15:17
--- NOTE | 2017-08-30 16:52 | EKG ---
Date Performed: 08/29/2017 Time Performed: 22:03:06 PTAGE: 26 years EKG: SINUS BRADYCARDIA ARM LEADS REVERSED BORDERLINE ECG NO PREVIOUS TRACING DOCTOR: Evan Danielson Interpretating Date/Time 08/30/2017 16:48:35
[2017-08-31] VITALS (11 sets, daily range): BP systolic 103–134; BP diastolic 62–82; PULSE 60–94; RESP 15–18; TEMP 98.9–99.4; O2SAT 98–100
[2017-08-31 03:06] LABS: ACETAMINOPHEN 2.1 MCG/ML (10.0-30.0); ALBUMIN 3.6 GM/DL (3.4-5.0); ALKALINE PHOSPHATASE 53 U/L (45-117); ALT (GPT) 650 U/L (10-53); AST (GOT) 505 U/L (15-37); BICARBONATE 20.2 MEQ/L (21.0-32.0); BLOOD UREA NITROGEN 3 MG/DL (7-18); CALCIUM 8.3 MG/DL (8.5-10.1); CHLORIDE 111 MEQ/L (98-107); CREATININE 0.51 MG/DL (0.50-1.00); GLOMERULAR FILTRATION RATE 145 ML/MIN (>89); GLUCOSE,RANDOM 74 MG/DL (74-106); SODIUM (NA) 141 MEQ/L (136-145); TOTAL BILIRUBIN ADULT 1.2 MG/DL (0.2-1.0); TOTAL PROTEIN 6.4 GM/DL (6.4-8.2)
[2017-08-31] MEDS: POTASSIUM CHLORIDE 20 MEQ CONTROLLED RELEASE TAB PO ONE ×2 (03:30→03:37)
[2017-08-31] MEDS: POTASSIUM CHLOR 20 MEQ PREMIX 100 ML IV SCH ×3 (06:59→21:58)
[2017-08-31] MEDS ORDERED: DEXTROSE 5% IV ONE ×2 (07:00)
[2017-08-31] MEDS ORDERED: WATE IV ONE ×2 (07:00)
[2017-08-31] MEDS ORDERED: ACETYLCYSTEINE IV ONE ×2 (07:00)
[2017-08-31 07:30] LABS: INTERNATIONAL NORMALIZED RATIO 1.8 RATIO; PROTHROMBIN TIME - PATIENT 18.7 SEC (9.8-11.6)
[2017-08-31] MEDS: SODIUM CHLORIDE 0.9% FLUSH 10 ML FLUSH IV FLUSH SCH ×2 (08:37→20:40)
[2017-08-31] MEDS: DOCUSATE SODIUM 50 MG/SENNA 8.6 MG TAB PO SCH ×2 (08:37→20:40)
--- NOTE | 2017-08-31 11:19 | HHI.PR ---
Subjective Remarks Patient with acute distress. However she was nauseated in the morning. No vomiting. Says she is not eating anything. Some abdominal cramps. Had diarrhea. No fever or chills. Objective Vitals Vital Signs Date Time Temp Pulse Resp B/P (MAP) Pulse Ox O2 Delivery O2 Flow Rate FiO2 08/31/17 08:11 99.0 94 18 134/82 (99) 99 08/31/17 08:00 Room Air 08/31/17 04:00 Room Air 08/31/17 04:00 98.9 82 15 123/62 (82) 98 08/31/17 04:00 63 08/31/17 00:00 84 08/31/17 00:00 Room Air 08/31/17 00:00 98.9 69 15 124/81 (95) 99 08/30/17 23:30 Room Air 08/30/17 23:09 69 08/30/17 21:36 99.5 72 16 121/68 (85) 99 08/30/17 16:45 99.3 80 18 117/69 (85) 99 08/30/17 12:24 98.9 69 18 122/77 (92) 99 I/O 08/30/17 08/30/17 08/30/17 08/31/17 08/31/17 08/31/17 06:59 14:59 22:59 06:59 14:59 22:59 Intake Total 240 ml 150 ml Balance 240 ml 150 ml Intake Oral 240 ml 150 ml # Voids 1 3 1 Result Diagram: 08/30/17 0443 08/31/17 0205 Imaging Last Impressions Head CT 08/29/172120 Signed Impressions: CONCLUSION: 1. No acute intracranial abnormalities. Chest X-Ray 08/29/172120 Signed Impressions: CONCLUSION: No active disease. Objective Remarks GENERAL: This is a well-nourished, well-developed patient, in no apparent distress. CARDIOVASCULAR: Regular rate and rhythm without murmurs, gallops, or rubs. RESPIRATORY: Clear to auscultation. Breath sounds equal bilaterally. No wheezes , rales, or rhonchi. GASTROINTESTINAL: Abdomen soft, RUQ tenderness, non distended. No guarding. MUSCULOSKELETAL: Extremities without clubbing, cyanosis, or edema. No calf tenderness. NEUROLOGICAL: Awake and alert. Normal speech. A/P Assessment and Plan Is is with 26 y/o female with no medical history presented to the ED after ingesting 10-12 non aspirin medication. Tylenol toxicity, with associated transaminitis, questionable intentional EKG shows sinus bradycardia Poison control suggested Acetadote IV, recheck Tylenol level 3 hours prior to the third bag of Acetadote being completed. Consult psych for evaluation Serial EKGs Trend LFTs Morphine IV for pain management Monitor telemetry Started on NAC Start / NS Replete K with IV Hypokalemia, potassium 2.9 Supplementation ordered, BMP in am, replace as needed DVT prophylaxis: SCDs Discussed Condition With Patient, nurse Elsa Cohen MD Aug 31, 2017 11:19
[2017-08-31] MEDS ORDERED: PROCHLORPERAZINE INJ 10 MG/2 ML VIAL IV PRN (16:00)
[2017-08-31] MEDS ORDERED: POTASSIUM BICARBONATE 25 MEQ EFFERVESCENT TAB PO ONE (16:00)
[2017-08-31] MEDS ORDERED: SODIUM CHLOR 0.45% 1000 ML INJ 1,000 ML IV SCH (16:00)
[2017-08-31] MEDS ORDERED: PROCHLORPERAZINE 25 MG SUPP RECTAL PRN (16:00)
--- NOTE | 2017-08-31 16:54 | PD.CONS ---
HPI History of Present Illness This is a 26 year old F with PMH significant for asthma who presented to the ER two days ago after reportedly taking 10-12 Tylenol for a headache. According to record pt denied trying to harm herself. Poison control has already been contacts, pt has been started on Acetylcysteine. She is complaining of nausea and vomiting since admission. Also complaining of upper abdominal pain, intermittent, described as sharp. Reports of diarrhea, one episode today and one yesterday. Complaints of fever and chills, max temperature since arrival has been 99.5. Pt denies ETOH. Admits to marijuana but denies any other illicit drug use. Denies smoking. Denies personal or family history of liver issues. Hepatitis panel negative. (Jillian Evans) PFSH Past Medical History Asthma Past Surgical History Patient denies any surgeries (Jillian Evans) Uncoded Allergies: Apple Juice (Adverse Reaction, Intermediate, Nausea/Vomiting, 08/30/17) also SOB Family History Patient denies any family history Social History Admits to marijuana use Alcohol use: Denies (Jillian Evans) Review of Systems Gastrointestinal: COMPLAINS OF: Abdominal pain, Diarrhea, Nausea, Vomiting, DENIES: Black stools, Bloody stools, Constipation, Difficulty Swallowing, Odynophagia, Swelling of Abdomen, Heartburn, Hematemesis (Jillian Evans) GI Exam Vitals I&O Vital Signs Date Time Temp Pulse Resp B/P (MAP) Pulse Ox O2 Delivery O2 Flow Rate FiO2 08/31/17 14:06 98.9 69 17 121/76 (91) 99 08/31/17 12:05 98.9 72 17 103/62 (76) 100 08/31/17 08:11 99.0 94 18 134/82 (99) 99 08/31/17 08:00 Room Air 08/31/17 04:00 Room Air 08/31/17 04:00 98.9 82 15 123/62 (82) 98 08/31/17 04:00 63 08/31/17 00:00 84 08/31/17 00:00 Room Air 08/31/17 00:00 98.9 69 15 124/81 (95) 99 08/30/17 23:30 Room Air 08/30/17 23:09 69 08/30/17 21:36 99.5 72 16 121/68 (85) 99 08/30/17 16:45 99.3 80 18 117/69 (85) 99 I/O 08/30/17 08/30/17 08/30/17 08/31/17 08/31/17 08/31/17 06:59 14:59 22:59 06:59 14:59 22:59 Intake Total 240 ml 150 ml Balance 240 ml 150 ml Intake Oral 240 ml 150 ml # Voids 1 3 1 Imaging Last Impressions Head CT 08/29/172120 Signed Impressions: CONCLUSION: 1. No acute intracranial abnormalities. Chest X-Ray 08/29/172120 Signed Impressions: CONCLUSION: No active disease. Laboratory Test 08/30/17 18:22 08/31/17 02:05 08/31/17 05:52 Acetaminophen Level 3.9 MCG/ML 2.1 MCG/ML Blood Urea Nitrogen 3 MG/DL Creatinine 0.51 MG/DL Random Glucose 74 MG/DL Total Protein 6.4 GM/DL Albumin 3.6 GM/DL Calcium Level 8.3 MG/DL Alkaline Phosphatase 53 U/L Aspartate Amino Transf (AST/SGOT) 505 U/L Alanine Aminotransferase (ALT/SGPT) 650 U/L Total Bilirubin 1.2 MG/DL Sodium Level 141 MEQ/L Potassium Level 2.9 MEQ/L Chloride Level 111 MEQ/L Carbon Dioxide Level 20.2 MEQ/L Anion Gap 10 MEQ/L Estimat Glomerular Filtration Rate 145 ML/MIN Prothrombin Time 18.7 SEC Prothromb Time International Ratio 1.8 RATIO Physical Examination HEENT: Normocephalic; atraumatic CHEST: Even/unlabored CARDIAC: RRR ABDOMEN: Soft, nondistended, upper abdominal tenderness EXTREMITIES: No clubbing, cyanosis, or edema. SKIN: Normal; no rash; no jaundice. FIXED INCOME MANAGER: Alert and oriented times three. (Jillian Evans) Assessment and Plan Plan Assessment: - Acetaminophen overdose- pt presented to the ER two days ago after taking 10- 12 Tylenol tablets. Serum acetaminophen level was 98.6 on admission. Poison control notified. Pt has been started on Acetylcysteine. LFTs: AST-505 ALT-650 T bili-1.2 Alk phos-53 PT-18.7 INR-1.8 Hepatitis panel negative. (+) tattoos. Denies IV drug use. Denies ETOH Admits to Marijuana Complaining of: upper abdominal pain, intermittent, sharp. Nausea and vomiting since admission. Diarrhea, one episode today and one yesterday, denies blood in stool. Pt denies personal and family history of liver issues. Plan: Liver US Acetylcysteine Monitor LFTs Monitor Coags Avoid hepatotoxins Supportive care Further recommendations based on clinical course Pt has been seen and examined by myself and Dr. Robison and this note is written on her behalf (Jillian Evans) Physician Comments seen, examined agree with above (Wendy Robison MD) Jillian Evans Aug 31, 2017 16:54 Wendy Robison MD Aug 31, 2017 19:41
[2017-08-31 20:33] LABS: ACETAMINOPHEN LESS THAN 2.0 MCG/ML (10.0-30.0); ALBUMIN 3.2 GM/DL (3.4-5.0); ALKALINE PHOSPHATASE 50 U/L (45-117); ALT (GPT) 3398 U/L (10-53); AST (GOT) 3098 U/L (15-37); BICARBONATE 20.9 MEQ/L (21.0-32.0); BLOOD UREA NITROGEN 6 MG/DL (7-18); CALCIUM 7.9 MG/DL (8.5-10.1); CHLORIDE 107 MEQ/L (98-107); CREATININE 0.54 MG/DL (0.50-1.00); GLOMERULAR FILTRATION RATE 135 ML/MIN (>89); GLUCOSE,RANDOM 83 MG/DL (74-106); SODIUM (NA) 139 MEQ/L (136-145)
--- NOTE | 2017-08-31 20:40 | RADRPT ---
EXAM DATE: 08/31/2017 8:31 PM EDT AGE/SEX: 26 years / Female INDICATIONS: Increased lab values with abdominal pain. Tylenol toxicity. CLINICAL DATA: This is the patient's initial encounter. Patient reports that signs and symptoms have been present for 1 day and indicates a pain score of 5/10. MEDICAL/SURGICAL HISTORY: Asthma. Anemia. None. COMPARISON: No prior exams available for comparison. MEASUREMENTS: Liver:__ 12.6 cm. Common Bile Duct:__ 2mm. Right Kidney:__ cm. FINDINGS: Liver: Normal echotexture without focal lesion or ductal dilatation. Portal Vein: Hepatopedal flow seen in portal vein. Common Duct: No intraluminal mass or stone visualized. Gallbladder: Demonstrates no wall thickening or pericholecystic fluid. No stones visualized. Pancreas: The visualized portions are within normal limits Right Kidney: Normal echotexture and cortical thickness. No mass or hydronephrosis. Other: None. CONCLUSION: 1. Normal right upper quadrant sonogram. No evidence for cholelithiasis. Electronically signed by: Cezar yLn MD 08/31/2017 8:38 PM EDT
[2017-08-31 21:06] LABS: INTERNATIONAL NORMALIZED RATIO 1.8 RATIO; PROTHROMBIN TIME - PATIENT 18.1 SEC (9.8-11.6)
[2017-08-31] MEDS ORDERED: PROCHLORPERAZINE INJ 10 MG/2 ML VIAL IV PUSH PRN (21:15)
[2017-09-01] VITALS (9 sets, daily range): BP systolic 113–125; BP diastolic 68–87; PULSE 61–94; RESP 16–18; TEMP 98–99; O2SAT 98–99
[2017-09-01] MEDS: POTASSIUM CHLOR 20 MEQ PREMIX 100 ML IV SCH (00:53)
[2017-09-01] MEDS ORDERED: DEXTROSE 5% IV ONE ×2 (03:00)
[2017-09-01] MEDS ORDERED: ACETYLCYSTEINE IV ONE ×2 (03:00)
[2017-09-01] MEDS ORDERED: WATE IV ONE ×2 (03:00)
[2017-09-01] MEDS: 1/2 NS + KCL 20 MEQ INJ 1,000 ML IV SCH ×2 (03:20→15:06)
[2017-09-01] MEDS: SODIUM CHLORIDE 0.9% FLUSH 10 ML FLUSH IV FLUSH SCH ×2 (07:01→21:00)
[2017-09-01] MEDS: DOCUSATE SODIUM 50 MG/SENNA 8.6 MG TAB PO SCH ×2 (07:01→21:00)
--- NOTE | 2017-09-01 14:27 | HHI.PR ---
Subjective Remarks Nausea she is not able to eat anything. Vomiting no diarrhea. Did not have any bowel movements. Has some pain in the right upper quadrant. No fever or chills. Feels very tired. Potassium is very low sodium 1 IV fluids with potassium no fever chills no nausea vomiting. Objective Vitals Vital Signs Date Time Temp Pulse Resp B/P (MAP) Pulse Ox O2 Delivery O2 Flow Rate FiO2 09/01/17 10:51 Room Air 09/01/17 08:00 74 09/01/17 04:00 98.6 85 18 116/79 (91) 99 09/01/17 03:39 71 09/01/17 00:00 98.6 81 18 125/87 (100) 99 08/31/17 23:43 68 08/31/17 20:00 Room Air 08/31/17 20:00 99.4 84 17 129/82 (98) 99 08/31/17 19:46 90 08/31/17 16:00 92 I/O 08/31/17 08/31/17 08/31/17 09/01/17 09/01/17 09/01/17 07:00 15:00 23:00 07:00 15:00 23:00 Intake Total 150 ml 1144 ml 1640 ml Balance 150 ml 1144 ml 1640 ml Intake Oral 150 ml 120 ml IV Total 1024 ml 1640 ml # Voids 1 1 # Bowel Movements 0 Result Diagram: 08/30/17 0443 08/31/171913 Imaging Last Impressions Liver Ultrasound 08/31/17 0000 Signed Impressions: CONCLUSION: 1. Normal right upper quadrant sonogram. No evidence for cholelithiasis. Head CT 08/29/172120 Signed Impressions: CONCLUSION: 1. No acute intracranial abnormalities. Chest X-Ray 08/29/172120 Signed Impressions: CONCLUSION: No active disease. Objective Remarks GENERAL: This is a well-nourished, well-developed patient, in no apparent distress. CARDIOVASCULAR: Regular rate and rhythm without murmurs, gallops, or rubs. RESPIRATORY: Clear to auscultation. Breath sounds equal bilaterally. No wheezes , rales, or rhonchi. GASTROINTESTINAL: Abdomen soft, RUQ tenderness, non distended. No guarding. MUSCULOSKELETAL: Extremities without clubbing, cyanosis, or edema. No calf tenderness. NEUROLOGICAL: Awake and alert. Normal speech. A/P Assessment and Plan 26 y/o female with no medical history presented to the ED after ingesting 10-12 non aspirin medication in attempt to control her headache migraine. Patient says she did not have any suicidal intent /attempt. Says she has never been depressed not she is now. Tylenol toxicity, with associated transaminitis, questionable intentional EKG shows sinus bradycardia Poison control suggested Acetadote IV, recheck Tylenol level 3 hours prior to the third bag of Acetadote being completed. Consult psych for evaluation Serial EKGs Trend LFTs worsening. Consulted GI. FF with Poison control. Morphine IV for pain management Monitor telemetry Started on NAC Start 1/2 NS with KCl as with persistent hypokalemia Tylenol level still elevated Hypokalemia, potassium 2.9 Supplementation ordered, BMP in am, replace as needed Monitor CMP DVT prophylaxis: SCDs Discussed Condition With Patient, nurse DC pl;an: Patient with nausea not able to eat . Also LFTs worsening. Tylenol not back to normal, ff poison control recs, GI also consulted. Monitor closely, risk of fulminant hepatic failure and might need transfer for liver transplant.evaluation Elsa Cohen MD Sep 01, 2017 14:27
[2017-09-01] MEDS ORDERED: POTASSIUM CHLORIDE 10 MEQ CONTROLLED RELEASE TAB PO ONE (14:30)
--- NOTE | 2017-09-01 15:02 | HHI.GIFU ---
Subjective Remarks Pt resting in bed Reports poor PO intake Some mild upper abdominal pain Denies nausea, vomiting (Jillian Evans) Objective Vitals I&O Vital Signs Date Time Temp Pulse Resp B/P (MAP) Pulse Ox O2 Delivery O2 Flow Rate FiO2 09/01/17 10:51 Room Air 09/01/17 08:00 74 09/01/17 08:00 98.7 89 16 113/72 (86) 99 09/01/17 04:00 98.6 85 18 116/79 (91) 99 09/01/17 03:39 71 09/01/17 00:00 98.6 81 18 125/87 (100) 99 08/31/17 23:43 68 08/31/17 20:00 Room Air 08/31/17 20:00 99.4 84 17 129/82 (98) 99 08/31/17 19:46 90 08/31/17 16:00 92 I/O 08/31/17 08/31/17 08/31/17 09/01/17 09/01/17 09/01/17 07:00 15:00 23:00 07:00 15:00 23:00 Intake Total 150 ml 1144 ml 1640 ml Balance 150 ml 1144 ml 1640 ml Intake Oral 150 ml 120 ml IV Total 1024 ml 1640 ml # Voids 1 1 # Bowel Movements 0 Laboratory Laboratory Tests Test 08/31/17 19:14 08/31/17 20:30 09/01/17 07:09 Blood Urea Nitrogen 6 Creatinine 0.54 Random Glucose 83 Total Protein 6.0 Albumin 3.2 Calcium Level 7.9 Alkaline Phosphatase 50 Aspartate Amino Transf (AST/SGOT) 3098 Alanine Aminotransferase (ALT/SGPT) 3398 Total Bilirubin 1.0 Sodium Level 139 Potassium Level 2.9 Chloride Level 107 Carbon Dioxide Level 20.9 Anion Gap 11 Estimat Glomerular Filtration Rate 135 Acetaminophen Level LESS THAN 2.0 LESS THAN 2.0 Prothrombin Time 18.1 Prothromb Time International Ratio 1.8 Activated Partial Thromboplast Time 28.5 Imaging Last Impressions Liver Ultrasound 08/31/17 0000 Signed Impressions: CONCLUSION: 1. Normal right upper quadrant sonogram. No evidence for cholelithiasis. Head CT 08/29/172120 Signed Impressions: CONCLUSION: 1. No acute intracranial abnormalities. Chest X-Ray 08/29/172120 Signed Impressions: CONCLUSION: No active disease. Physical Exam HEENT: Normocephalic; atraumatic CHEST: Even/unlabored CARDIAC: RRR ABDOMEN: Soft, nondistended, mild upper abdominal tenderness, bowel sounds active EXTREMITIES: No clubbing, cyanosis, or edema. SKIN: Normal; no rash; no jaundice. ACCOUNTANT ASSISTANT: Alert and oriented times three. (Jillian Evans) Assessment and Plan Plan Assessment: - Acetaminophen overdose- pt presented to the ER two days ago after taking 10- 12 Tylenol tablets. Serum acetaminophen level was 98.6 on admission. Poison control notified. Pt has been started on Acetylcysteine. LFTs: AST-505 ALT-650 T bili-1.2 Alk phos-53 PT-18.7 INR-1.8 Hepatitis panel negative. (+) tattoos. Denies IV drug use. Denies ETOH Admits to Marijuana Complaining of: upper abdominal pain, intermittent, sharp. Nausea and vomiting since admission. Diarrhea, one episode today and one yesterday, denies blood in stool. Pt denies personal and family history of liver issues. (09/01) Pt reports some mild upper abdominal pain, poor PO intake. Denies nausea and vomiting. Repeat labs checked last night with significant increase in LFTs. Labs from today pending. Liver US --> Normal right upper quadrant sonogram. No evidence for cholelithiasis. Hepatitis panel negative Plan: Acetylcysteine Monitor LFTs Monitor Coags Avoid hepatotoxins Supportive care Further recommendations based on clinical course Pt has been seen and examined by myself and Dr. Robison and this note is written on her behalf (Jillian Evans) Physician Comments seen, examined we will monitor lfts, mental status if worse will need transfer to tertiary center continue Mucomyst for now pt/ir, lfts, cb , ammonia daily (Wendy Robison MD) Jillian Evans Sep 01, 2017 15:02 Wendy Robison MD Sep 01, 2017 17:39
[2017-09-01 15:30] LABS: AUTOMATED NEUTROPHIL # 5.5 TH/MM3 (1.8-7.7); BASOPHIL # 0.1 TH/MM3 (0-0.2); EOSINOPHIL # 0.1 TH/MM3 (0-0.4); EOSINOPHIL % 1.4 % (0.0-4.0); HEMATOCRIT 37.1 % (35.0-46.0); HEMOGLOBIN 12.2 GM/DL (11.6-15.3); LYMPH % 14.7 % (9.0-44.0); LYMPHOCYTE # 1.1 TH/MM3 (1.0-4.8); MEAN CELL VOLUME 83.4 FL (80.0-100.0); MEAN CORPUSCULAR HEMOGLOBIN 27.5 PG (27.0-34.0); MONO % 4.6 % (0.0-8.0); MONOCYTE # 0.3 TH/MM3 (0-0.9); NEUT % 77.3 % (16.0-70.0); PLATELET COUNT 167 TH/MM3 (150-450); RED BLOOD COUNT 4.44 MIL/MM3 (4.00-5.30); RED CELL DISTRIBUTION WIDTH 14.7 % (11.6-17.2); WHITE BLOOD COUNT 7.1 TH/MM3 (4.0-11.0)
[2017-09-01 15:38] LABS: INTERNATIONAL NORMALIZED RATIO 1.7 RATIO; PROTHROMBIN TIME - PATIENT 17.2 SEC (9.8-11.6)
[2017-09-01 15:50] LABS: ALBUMIN 3.1 GM/DL (3.4-5.0); BICARBONATE 24.5 MEQ/L (21.0-32.0); BLOOD UREA NITROGEN 4 MG/DL (7-18); CALCIUM 7.9 MG/DL (8.5-10.1); CHLORIDE 108 MEQ/L (98-107); CREATININE 0.41 MG/DL (0.50-1.00); GLUCOSE,RANDOM 101 MG/DL (74-106); SODIUM (NA) 143 MEQ/L (136-145)
[2017-09-01 16:06] LABS: ALKALINE PHOSPHATASE 49 U/L (45-117); ALT (GPT) 4180 U/L (10-53); AST (GOT) 2404 U/L (15-37); TOTAL PROTEIN 5.9 GM/DL (6.4-8.2)
[2017-09-01 18:25] LABS: BICARBONATE 22.8 MEQ/L (21.0-32.0); BLOOD UREA NITROGEN 3 MG/DL (7-18); CHLORIDE 106 MEQ/L (98-107); GLUCOSE,RANDOM 121 MG/DL (74-106); SODIUM (NA) 139 MEQ/L (136-145)
[2017-09-01 18:41] LABS: ALKALINE PHOSPHATASE 49 U/L (45-117); ALT (GPT) 3798 U/L (10-53); AST (GOT) 1967 U/L (15-37); TOTAL BILIRUBIN ADULT 1.1 MG/DL (0.2-1.0); TOTAL PROTEIN 5.9 GM/DL (6.4-8.2)
[2017-09-02] VITALS (10 sets, daily range): BP systolic 101–120; BP diastolic 67–79; PULSE 65–88; RESP 16–18; TEMP 98.2–100; O2SAT 98–99
[2017-09-02] MEDS: 1/2 NS + KCL 20 MEQ INJ 1,000 ML IV SCH ×2 (01:01→11:18)
[2017-09-02] MEDS ORDERED: DEXTROSE 5% IV ONE ×2 (02:45)
[2017-09-02] MEDS ORDERED: WATE IV ONE ×2 (02:45)
[2017-09-02] MEDS ORDERED: ACETYLCYSTEINE IV ONE ×2 (02:45)
[2017-09-02] MEDS: DOCUSATE SODIUM 50 MG/SENNA 8.6 MG TAB PO SCH ×2 (07:33→21:00)
[2017-09-02] MEDS: SODIUM CHLORIDE 0.9% FLUSH 10 ML FLUSH IV FLUSH SCH (07:33)
[2017-09-02 07:54] LABS: AUTOMATED NEUTROPHIL # 3.1 TH/MM3 (1.8-7.7); BASOPHIL # 0.1 TH/MM3 (0-0.2); EOSINOPHIL # 0.2 TH/MM3 (0-0.4); EOSINOPHIL % 4.1 % (0.0-4.0); HEMATOCRIT 34.8 % (35.0-46.0); HEMOGLOBIN 11.8 GM/DL (11.6-15.3); LYMPHOCYTE # 1.9 TH/MM3 (1.0-4.8); MEAN CELL VOLUME 82.9 FL (80.0-100.0); MEAN CORPUSCULAR HEMOGLOBIN 28.2 PG (27.0-34.0); MONO % 7.6 % (0.0-8.0); MONOCYTE # 0.4 TH/MM3 (0-0.9); NEUT % 54.3 % (16.0-70.0); PLATELET COUNT 170 TH/MM3 (150-450); RED CELL DISTRIBUTION WIDTH 14.7 % (11.6-17.2); WHITE BLOOD COUNT 5.7 TH/MM3 (4.0-11.0)
[2017-09-02 08:03] LABS: INTERNATIONAL NORMALIZED RATIO 1.5 RATIO; PROTHROMBIN TIME - PATIENT 15.5 SEC (9.8-11.6)
[2017-09-02 08:27] LABS: AST (GOT) 860 U/L (15-37); BICARBONATE 22.5 MEQ/L (21.0-32.0); BLOOD UREA NITROGEN 1 MG/DL (7-18); CALCIUM 7.8 MG/DL (8.5-10.1); CHLORIDE 108 MEQ/L (98-107); CREATININE 0.38 MG/DL (0.50-1.00); GLOMERULAR FILTRATION RATE 203 ML/MIN (>89); GLUCOSE,RANDOM 92 MG/DL (74-106); SODIUM (NA) 141 MEQ/L (136-145)
[2017-09-02 08:35] LABS: ALKALINE PHOSPHATASE 47 U/L (45-117); ALT (GPT) 2839 U/L (10-53); TOTAL BILIRUBIN ADULT 1.2 MG/DL (0.2-1.0); TOTAL PROTEIN 5.8 GM/DL (6.4-8.2)
--- NOTE | 2017-09-02 08:55 | HHI.PR ---
Subjective Remarks Not able to keep down any food. Yesterday she was able to eat. Today she is with nausea did not vomit yet. Some epigastric pain. No diarrhea no constipation. Objective Vitals Vital Signs Date Time Temp Pulse Resp B/P (MAP) Pulse Ox O2 Delivery O2 Flow Rate FiO2 09/02/17 08:00 98.4 71 18 101/67 (78) 99 09/02/17 07:35 Room Air 09/02/17 04:20 88 09/02/17 04:00 Room Air 09/02/17 04:00 98.3 76 16 102/67 (79) 99 09/02/17 00:00 98.3 65 16 120/79 (93) 98 09/02/17 00:00 Room Air 09/01/17 23:42 94 09/01/17 20:00 Room Air 09/01/17 20:00 99.0 76 16 113/76 (88) 98 09/01/17 19:44 61 09/01/17 16:00 62 09/01/17 16:00 98.2 77 16 114/69 (84) 99 09/01/17 12:00 66 09/01/17 12:00 98.0 75 16 120/68 (85) 98 09/01/17 10:51 Room Air I/O 09/01/17 09/01/17 09/01/17 09/02/17 09/02/17 09/02/17 06:59 14:59 22:59 06:59 14:59 22:59 Intake Total 2664 ml 187 ml 1934 ml Balance 2664 ml 187 ml 1934 ml Intake Oral 240 ml IV Total 2664 ml 187 ml 1694 ml # Voids 3 # Bowel Movements 0 Result Diagram: 09/02/17 0716 09/02/17 0716 Imaging Last Impressions Liver Ultrasound 08/31/17 0000 Signed Impressions: CONCLUSION: 1. Normal right upper quadrant sonogram. No evidence for cholelithiasis. Head CT 08/29/172120 Signed Impressions: CONCLUSION: 1. No acute intracranial abnormalities. Chest X-Ray 08/29/172120 Signed Impressions: CONCLUSION: No active disease. Objective Remarks GENERAL: This is a well-nourished, well-developed patient, in no apparent distress. CARDIOVASCULAR: Regular rate and rhythm without murmurs, gallops, or rubs. RESPIRATORY: Clear to auscultation. Breath sounds equal bilaterally. No wheezes , rales, or rhonchi. GASTROINTESTINAL: Abdomen soft, RUQ tenderness, non distended. No guarding. MUSCULOSKELETAL: Extremities without clubbing, cyanosis, or edema. No calf tenderness. NEUROLOGICAL: Awake and alert. Normal speech. A/P Assessment and Plan 26 y/o female with no medical history presented to the ED after ingesting 10-12 non aspirin medication in attempt to control her headache migraine. Patient says she did not have any suicidal intent /attempt. Says she has never been depressed not she is now. Tylenol toxicity, with associated transaminitis, questionable intentional EKG shows sinus bradycardia Poison control suggested Acetadote IV, recheck Tylenol level 3 hours prior to the third bag of Acetadote being completed. Consult psych for evaluation Serial EKGs Trend LFTs worsening. Consulted GI. FF with Poison control. Morphine IV for pain management Monitor telemetry Started on NAC Start 1/2 NS with KCl as with persistent hypokalemia Tylenol level still elevated Hypokalemia, potassium 2.9 Supplementation ordered, BMP in am, replace as needed Monitor CMP DVT prophylaxis: SCDs Discussed Condition With Patient, nurse DC pl;an: Patient with nausea not able to eat . Also LFTs worsening. Tylenol not back to normal, ff poison control recs, GI also consulted. Monitor closely, risk of fulminant hepatic failure and might need transfer for liver transplant.evaluation Elsa Cohen MD Sep 02, 2017 08:55
[2017-09-02] MEDS ORDERED: POTASSIUM BICARBONATE 25 MEQ EFFERVESCENT TAB PO ONE (09:00)
[2017-09-02] MEDS ORDERED: POTASSIUM CHLOR 20 MEQ PREMIX 100 ML IV ONE (11:45)
[2017-09-02] MEDS ORDERED: LACTULOSE SYRUP 20 GM/30 ML CUP PO ONE (11:45)
--- NOTE | 2017-09-02 15:36 | HHI.GIFU ---
Subjective Remarks Patient is curled up in the bed eyes closed but does respond to verbal stimuli Patient is answering simple questions but still complains of nausea. She states vomited 1 but after trying to take p.o. potassium. States she cannot drink potassium current hemoglobin 11.8 Afebrile (Elma Keller) Objective Vitals I&O Vital Signs Date Time Temp Pulse Resp B/P (MAP) Pulse Ox O2 Delivery O2 Flow Rate FiO2 09/02/17 12:00 69 09/02/17 12:00 98.2 75 16 112/76 (88) 99 09/02/17 08:27 66 09/02/17 08:00 98.4 71 18 101/67 (78) 99 09/02/17 07:35 Room Air 09/02/17 04:20 88 09/02/17 04:00 Room Air 09/02/17 04:00 98.3 76 16 102/67 (79) 99 09/02/17 00:00 98.3 65 16 120/79 (93) 98 09/02/17 00:00 Room Air 09/01/17 23:42 94 09/01/17 20:00 Room Air 09/01/17 20:00 99.0 76 16 113/76 (88) 98 09/01/17 19:44 61 09/01/17 16:00 62 09/01/17 16:00 98.2 77 16 114/69 (84) 99 I/O 09/01/17 09/01/17 09/01/17 09/02/17 09/02/17 09/02/17 07:00 15:00 23:00 07:00 15:00 23:00 Intake Total 1640 ml 187 ml 1934 ml Balance 1640 ml 187 ml 1934 ml Intake Oral 240 ml IV Total 1640 ml 187 ml 1694 ml # Voids 3 # Bowel Movements 0 Laboratory Laboratory Tests Test 09/01/17 17:33 09/02/17 07:16 09/02/17 11:37 Blood Urea Nitrogen 3 1 Creatinine 0.40 0.38 Random Glucose 121 92 Total Protein 5.9 5.8 Albumin 3.0 3.0 Calcium Level 8.0 7.8 Alkaline Phosphatase 49 47 Aspartate Amino Transf (AST/SGOT) 1967 860 Alanine Aminotransferase (ALT/SGPT) 3798 2839 Total Bilirubin 1.1 1.2 Sodium Level 139 141 Potassium Level 3.1 3.3 Chloride Level 106 108 Carbon Dioxide Level 22.8 22.5 Anion Gap 10 11 White Blood Count 5.7 Red Blood Count 4.20 Hemoglobin 11.8 Hematocrit 34.8 Mean Corpuscular Volume 82.9 Mean Corpuscular Hemoglobin 28.2 Mean Corpuscular Hemoglobin Concent 34.0 Red Cell Distribution Width 14.7 Platelet Count 170 Mean Platelet Volume 9.0 Neutrophils (%) (Auto) 54.3 Lymphocytes (%) (Auto) 33.0 Monocytes (%) (Auto) 7.6 Eosinophils (%) (Auto) 4.1 Basophils (%) (Auto) 1.0 Neutrophils # (Auto) 3.1 Lymphocytes # (Auto) 1.9 Monocytes # (Auto) 0.4 Eosinophils # (Auto) 0.2 Basophils # (Auto) 0.1 CBC Comment DIFF FINAL Differential Comment Prothrombin Time 15.5 Prothromb Time International Ratio 1.5 Estimat Glomerular Filtration Rate 203 Ammonia 40 Acetaminophen Level LESS THAN 2.0 Imaging Last Impressions Liver Ultrasound 08/31/17 0000 Signed Impressions: CONCLUSION: 1. Normal right upper quadrant sonogram. No evidence for cholelithiasis. Head CT 08/29/172120 Signed Impressions: CONCLUSION: 1. No acute intracranial abnormalities. Chest X-Ray 08/29/172120 Signed Impressions: CONCLUSION: No active disease. Physical Exam HEENT: Normocephalic; atraumatic oral cavity clear CHEST: Even/unlabored no obvious rhonchi or wheezing CARDIAC: RRR ABDOMEN: Soft, nondistended, denies any abdominal discomfort, bowel sounds active EXTREMITIES: No clubbing, cyanosis, or edema. SKIN: Normal; no rash; no jaundice. BOOKMAKER MAP: Awakens to verbal stimuli and answers simple questions appropriately and knows where she is (Elma Keller) Assessment and Plan Plan Assessment: - Acetaminophen overdose- pt presented to the ER two days ago after taking 10- 12 Tylenol tablets. Serum acetaminophen level was 98.6 on admission. Poison control notified. Pt has been started on Acetylcysteine. LFTs: AST-505 ALT-650 T bili-1.2 Alk phos-53 PT-18.7 INR-1.8 Hepatitis panel negative. (+) tattoos. Denies IV drug use. Denies ETOH Admits to Marijuana Complaining of: upper abdominal pain, intermittent, sharp. Nausea and vomiting since admission. Diarrhea, one episode today and one yesterday, denies blood in stool. Pt denies personal and family history of liver issues. (09/01) Pt reports some mild upper abdominal pain, poor PO intake. Denies nausea and vomiting. Repeat labs checked last night with significant increase in LFTs. Labs from today pending. Liver US --> Normal right upper quadrant sonogram. No evidence for cholelithiasis. Hepatitis panel negative 09/02/2017 patient is resting in the bed eyes closed but does respond to verbal stimuli. Current labs show mild gradual improvement in her LFTs bilirubin 1.2, AST 860, ALT 2839, patient does note some nausea and vomiting 1 when trying to drink oral potassium. She states she cannot drink the potassium without vomiting at this time. Patient is passing gas but denies any bowel movement for now. ammonia level 40. Patient is getting slow response from Tylenol overdose and toxicity. She is maintained currently on an acetylcysteine drip, encouraged hydration, eating very minimal amounts of food. Dependent on patient 's need she may need transfer to tertiary facility. No current GI procedures needed for now. Liver ultrasound reviewed, coagulation labs reviewed currently INR 1.5. Liver toxicity, will continue to monitor. Plan: Diet per attending Acetylcysteine drip continues Lactulose daily Anti-emetics Monitor labs with special attention to her bilirubin and LFTs, coags Avoid hepatotoxins Supportive care Encourage activity dangle on side of the bed and up in chair Pt has been seen per myself and Dr. Robison, note is written on her behalf (Elma Keller) Physician Comments lfts improving no indication of liver failure consider psych eval before discharge (Wendy Robison MD) Elma Keller Sep 02, 2017 15:36 Wendy Robison MD Sep 02, 2017 16:45
[2017-09-02 21:53] LABS: INTERNATIONAL NORMALIZED RATIO 1.3 RATIO; PROTHROMBIN TIME - PATIENT 13.4 SEC (9.8-11.6)
[2017-09-02 22:26] LABS: ALBUMIN 3.7 GM/DL (3.4-5.0); DIRECT BILIRUBIN ADULT 0.4 MG/DL (0.0-0.2); INDIRECT BILIRUBIN 0.7 MG/DL (0.0-0.8); TOTAL BILIRUBIN ADULT 1.1 MG/DL (0.2-1.0)
[2017-09-03] VITALS (8 sets, daily range): BP systolic 102–112; BP diastolic 64–73; PULSE 59–80; RESP 16–18; TEMP 98.2–99.7; O2SAT 98–100
[2017-09-03] MEDS: SODIUM CHLORIDE 0.9% FLUSH 10 ML FLUSH IV FLUSH SCH ×3 (03:54→20:51)
[2017-09-03] MEDS: 1/2 NS + KCL 20 MEQ INJ 1,000 ML IV SCH ×3 (03:54→14:28)
[2017-09-03 08:30] LABS: INTERNATIONAL NORMALIZED RATIO 1.2 RATIO; PROTHROMBIN TIME - PATIENT 12.3 SEC (9.8-11.6)
[2017-09-03 08:50] LABS: ALBUMIN 3.4 GM/DL (3.4-5.0); AST (GOT) 386 U/L (15-37); BLOOD UREA NITROGEN 3 MG/DL (7-18); CALCIUM 8.3 MG/DL (8.5-10.1); CHLORIDE 107 MEQ/L (98-107); CREATININE 0.47 MG/DL (0.50-1.00); GLOMERULAR FILTRATION RATE 159 ML/MIN (>89); GLUCOSE,RANDOM 72 MG/DL (74-106); MAGNESIUM 1.8 MG/DL (1.5-2.5); SODIUM (NA) 139 MEQ/L (136-145)
[2017-09-03] MEDS: DOCUSATE SODIUM 50 MG/SENNA 8.6 MG TAB PO SCH ×2 (08:56→20:51)
[2017-09-03] MEDS: LACTULOSE SYRUP 20 GM/30 ML CUP PO SCH (08:56)
[2017-09-03 08:59] LABS: ALKALINE PHOSPHATASE 49 U/L (45-117); ALT (GPT) 2004 U/L (10-53); TOTAL BILIRUBIN ADULT 0.9 MG/DL (0.2-1.0); TOTAL PROTEIN 6.3 GM/DL (6.4-8.2)
--- NOTE | 2017-09-03 12:29 | HHI.GIFU ---
Subjective Remarks PT is resting in bed eating Pizza, denies much of gi issues, states some Iv meds give her nausea. (Shubham Henry) Objective Vitals I&O Vital Signs Date Time Temp Pulse Resp B/P (MAP) Pulse Ox O2 Delivery O2 Flow Rate FiO2 09/03/17 11:51 98.6 71 16 102/73 (83) 99 09/03/17 08:44 98.2 73 16 105/68 (80) 100 09/03/17 04:00 98.8 79 16 112/64 (80) 100 09/03/17 00:00 99.7 76 16 103/65 (78) 98 09/02/17 21:00 75 09/02/17 20:00 100.0 78 16 110/69 (83) 99 09/02/17 16:49 99.2 72 16 111/74 (86) 99 09/02/17 16:00 74 I/O 09/02/17 09/02/17 09/02/17 09/03/17 09/03/17 09/03/17 07:00 15:00 23:00 07:00 15:00 23:00 Intake Total 1934 ml 240 ml Balance 1934 ml 240 ml Intake Oral 240 ml 240 ml IV Total 1694 ml # Voids 3 3 # Bowel Movements 0 0 Laboratory Laboratory Tests Test 09/02/17 20:37 09/03/17 07:29 Prothrombin Time 13.4 12.3 Prothromb Time International Ratio 1.3 1.2 Activated Partial Thromboplast Time 26.1 Total Bilirubin 1.1 0.9 Direct Bilirubin 0.4 Indirect Bilirubin 0.7 Aspartate Amino Transf (AST/SGOT) 591 386 Alanine Aminotransferase (ALT/SGPT) 2674 2003 Alkaline Phosphatase 57 49 Total Protein 7.0 6.3 Albumin 3.7 3.4 Blood Urea Nitrogen 3 Creatinine 0.47 Random Glucose 72 Calcium Level 8.3 Magnesium Level 1.8 Sodium Level 139 Potassium Level 3.8 Chloride Level 107 Carbon Dioxide Level 22.0 Anion Gap 10 Estimat Glomerular Filtration Rate 159 Imaging Last Impressions Liver Ultrasound 08/31/17 0000 Signed Impressions: CONCLUSION: 1. Normal right upper quadrant sonogram. No evidence for cholelithiasis. Head CT 08/29/171 Signed Impressions: CONCLUSION: 1. No acute intracranial abnormalities. Chest X-Ray 08/29/172120 Signed Impressions: CONCLUSION: No active disease. Physical Exam HEENT: Normocephalic; atraumatic oral cavity clear CHEST: Even/unlabored no obvious rhonchi or wheezing CARDIAC: RRR ABDOMEN: Soft, nondistended, denies any abdominal discomfort, bowel sounds active EXTREMITIES: No clubbing, cyanosis, or edema. SKIN: Normal; no rash; no jaundice. HYDROBLASTER: Alert and oriented (Shubham Henry) Assessment and Plan Plan Assessment: - Acetaminophen overdose- pt presented to the ER two days ago after taking 10- 12 Tylenol tablets. Serum acetaminophen level was 98.6 on admission. Poison control notified. Pt has been started on Acetylcysteine. LFTs: AST-505 ALT-650 T bili-1.2 Alk phos-53 PT-18.7 INR-1.8 Hepatitis panel negative. (+) tattoos. Denies IV drug use. Denies ETOH Admits to Marijuana Complaining of: upper abdominal pain, intermittent, sharp. Nausea and vomiting since admission. Diarrhea, one episode today and one yesterday, denies blood in stool. Pt denies personal and family history of liver issues. (09/01) Pt reports some mild upper abdominal pain, poor PO intake. Denies nausea and vomiting. Repeat labs checked last night with significant increase in LFTs. Labs from today pending. Liver US --> Normal right upper quadrant sonogram. No evidence for cholelithiasis. Hepatitis panel negative 09/02/2017 patient is resting in the bed eyes closed but does respond to verbal stimuli. Current labs show mild gradual improvement in her LFTs bilirubin 1.2, AST 860, ALT 2839, patient does note some nausea and vomiting 1 when trying to drink oral potassium. She states she cannot drink the potassium without vomiting at this time. Patient is passing gas but denies any bowel movement for now. ammonia level 40. Patient is getting slow response from Tylenol overdose and toxicity. She is maintained currently on an acetylcysteine drip, encouraged hydration, eating very minimal amounts of food. Dependent on patient 's need she may need transfer to tertiary facility. No current GI procedures needed for now. Liver ultrasound reviewed, coagulation labs reviewed currently INR 1.5. Liver toxicity, will continue to monitor. 09/03/17 Doing good today, no GI issues, no evidence of liver failure, LFTs cont. to trend down. Plan: Regular diet S/P Acetylcysteine drip Anti-emetics Monitor labs with special attention to her bilirubin and LFTs, coags Avoid hepatotoxins LFTs, ammonia in the am Psych on the case Pt has been seen per myself and Dr. Robison, note is written on her behalf (Shubham Henry) Physician Comments seen, examined agree with above (Wendy Robison MD) Shubham Henry Sep 03, 2017 12:29 Wendy Robison MD Sep 03, 2017 20:35
[2017-09-03 15:20] LABS: % SATURATION IRON PROFILE 15.6 % (20-50); IRON (FE) 56 MCG/DL (50-170); TOTAL IRON BINDING CAPACITY 358 MCG/DL (250-450)
[2017-09-03 15:23] LABS: FERRITIN 71 NG/ML (8-252)
--- NOTE | 2017-09-03 15:51 | HHI.PR ---
Subjective Remarks The patient states that she feels much better. Denies nausea, vomiting, abdominal pain. States she has good appetite. Objective Vitals Vital Signs Date Time Temp Pulse Resp B/P (MAP) Pulse Ox O2 Delivery O2 Flow Rate FiO2 09/03/17 11:53 65 09/03/17 11:51 98.6 71 16 102/73 (83) 99 09/03/17 08:44 98.2 73 16 105/68 (80) 100 09/03/17 07:50 59 09/03/17 04:00 98.8 79 16 112/64 (80) 100 09/03/17 00:00 99.7 76 16 103/65 (78) 98 09/02/17 21:00 75 09/02/17 20:00 100.0 78 16 110/69 (83) 99 09/02/17 16:49 99.2 72 16 111/74 (86) 99 09/02/17 16:00 74 I/O 09/02/17 09/02/17 09/02/17 09/03/17 09/03/17 09/03/17 06:59 14:59 22:59 06:59 14:59 22:59 Intake Total 1934 ml 240 ml 1000 ml Balance 1934 ml 240 ml 1000 ml Intake Oral 240 ml 240 ml IV Total 1694 ml 1000 ml # Voids 3 3 # Bowel Movements 0 0 Result Diagram: 09/02/17 0716 09/03/17 0729 Imaging Last Impressions Liver Ultrasound 08/31/17 0000 Signed Impressions: CONCLUSION: 1. Normal right upper quadrant sonogram. No evidence for cholelithiasis. Head CT 08/29/172120 Signed Impressions: CONCLUSION: 1. No acute intracranial abnormalities. Chest X-Ray 08/29/172120 Signed Impressions: CONCLUSION: No active disease. Objective Remarks GENERAL: This is a well-nourished, well-developed patient, in no apparent distress. CARDIOVASCULAR: Regular rate and rhythm without murmurs, gallops, or rubs. RESPIRATORY: Clear to auscultation. Breath sounds equal bilaterally. No wheezes , rales, or rhonchi. GASTROINTESTINAL: Abdomen soft, RUQ tenderness, non distended. No guarding. MUSCULOSKELETAL: Extremities without clubbing, cyanosis, or edema. No calf tenderness. NEUROLOGICAL: Awake and alert. Normal speech. A/P Problem List: (1) Tylenol toxicity ICD Code: T39.1X1A - Poisoning by 4-Aminophenol derivatives, accidental ( unintentional), initial encounter Status: Acute (2) Tylenol overdose ICD Code: T39.1X1A - Poisoning by 4-Aminophenol derivatives, accidental ( unintentional), initial encounter Status: Acute (3) Transaminitis ICD Code: R74.0 - Nonspecific elevation of levels of transaminase and lactic acid dehydrogenase [LDH] Status: Acute Assessment and Plan 26 y/o female with no medical history presented to the ED after ingesting 10-12 non aspirin medication in attempt to control her headache migraine. Patient says she did not have any suicidal intent /attempt. Says she has never been depressed not she is now. Tylenol toxicity, with associated transaminitis, questionable intentional The patient presented to the ER after taking 10-12 Tylenol tablets. Serum acetaminophen level was 98.6 on admission. At the time percent control was notified patient was started and lasted till 16. AST on admission was 244 and peaked up on 3098 and is now downtrending. ALT was 214 and peaked at 4180. Continue to monitor LFTs. GI consulted Continue to monitor LFTs Monitor on telemetry Tylenol level now within normal range. I will consult psychiatry. Hypokalemia, potassium 2.9 Supplementation ordered, BMP in am, replace as needed Monitor CMP DVT prophylaxis: SCDs Discussed Condition With Patient, nurse Problem Qualifiers (1) Tylenol toxicity: Qualified Codes: T39.1X1A - Poisoning by 4-aminophenol derivatives, accidental (unintentional), initial encounter (2) Tylenol overdose: Qualified Codes: T39.1X1A - Poisoning by 4-aminophenol derivatives, accidental (unintentional), initial encounter Patrick Bartholomew MD Sep 03, 2017 15:51
[2017-09-04] VITALS (10 sets, daily range): BP systolic 99–137; BP diastolic 57–79; PULSE 63–75; RESP 16–20; TEMP 97.9–98.9; O2SAT 97–99
[2017-09-04] MEDS: 1/2 NS + KCL 20 MEQ INJ 1,000 ML IV SCH ×3 (00:36→21:08)
[2017-09-04 08:39] LABS: INTERNATIONAL NORMALIZED RATIO 1.1 RATIO; PROTHROMBIN TIME - PATIENT 11.4 SEC (9.8-11.6)
[2017-09-04] MEDS: SODIUM CHLORIDE 0.9% FLUSH 10 ML FLUSH IV FLUSH SCH ×2 (08:47→21:00)
[2017-09-04] MEDS: LACTULOSE SYRUP 20 GM/30 ML CUP PO SCH (08:47)
[2017-09-04] MEDS: DOCUSATE SODIUM 50 MG/SENNA 8.6 MG TAB PO SCH ×2 (08:47→21:00)
--- NOTE | 2017-09-04 08:48 | HHI.PR ---
Subjective Remarks Some abdominal pain right upper quadrant however significantly improved. Some nausea however able to eat and appetite is back. No fever or chills. No suicidal ideation. She was evaluated by psychiatry who cleared the patient no need of psychiatric admission or antidepressants. Objective Vitals Vital Signs Date Time Temp Pulse Resp B/P (MAP) Pulse Ox O2 Delivery O2 Flow Rate FiO2 09/04/17 04:00 98.2 75 16 137/79 (98) 99 09/04/17 03:57 67 09/04/17 00:00 Room Air 09/04/17 00:00 98.9 68 16 113/62 (79) 99 09/04/17 00:00 69 09/03/17 20:00 98.7 76 18 106/64 (78) 99 09/03/17 20:00 80 09/03/17 19:45 Room Air 09/03/17 15:54 68 09/03/17 11:53 65 09/03/17 11:51 98.6 71 16 102/73 (83) 99 I/O 09/03/17 09/03/17 09/03/17 09/04/17 09/04/17 09/04/17 07:00 15:00 23:00 07:00 15:00 23:00 Intake Total 240 ml 1000 ml 520 ml 960 ml Balance 240 ml 1000 ml 520 ml 960 ml Intake Oral 240 ml 520 ml 960 ml IV Total 1000 ml # Voids 3 5 6 # Bowel Movements 0 0 Result Diagram: 09/02/17 0716 09/03/17 0729 Imaging Last Impressions Liver Ultrasound 08/31/17 0000 Signed Impressions: CONCLUSION: 1. Normal right upper quadrant sonogram. No evidence for cholelithiasis. Head CT 08/29/172120 Signed Impressions: CONCLUSION: 1. No acute intracranial abnormalities. Chest X-Ray 08/29/172120 Signed Impressions: CONCLUSION: No active disease. Objective Remarks GENERAL: This is a well-nourished, well-developed patient, in no apparent distress. CARDIOVASCULAR: Regular rate and rhythm without murmurs, gallops, or rubs. RESPIRATORY: Clear to auscultation. Breath sounds equal bilaterally. No wheezes , rales, or rhonchi. GASTROINTESTINAL: Abdomen soft, RUQ tenderness, non distended. No guarding. MUSCULOSKELETAL: Extremities without clubbing, cyanosis, or edema. No calf tenderness. NEUROLOGICAL: Awake and alert. Normal speech. A/P Problem List: (1) Tylenol toxicity ICD Code: T39.1X1A - Poisoning by 4-Aminophenol derivatives, accidental ( unintentional), initial encounter Status: Acute (2) Tylenol overdose ICD Code: T39.1X1A - Poisoning by 4-Aminophenol derivatives, accidental ( unintentional), initial encounter Status: Acute (3) Transaminitis ICD Code: R74.0 - Nonspecific elevation of levels of transaminase and lactic acid dehydrogenase [LDH] Status: Acute Assessment and Plan 26 y/o female with no medical history presented to the ED after ingesting 10-12 non aspirin medication in attempt to control her headache migraine. Patient says she did not have any suicidal intent /attempt. Says she has never been depressed not she is now. Tylenol toxicity, with associated transaminitis, questionable intentional EKG shows sinus bradycardia Poison control suggested Acetadote IV, recheck Tylenol level 3 hours prior to the third bag of Acetadote being completed. Consult psych for evaluation. Was seen by psychiatry the patient is not Anand acted because does not meet criteria. She is cleared by psychiatry as does not meet inpatient criteria. Patient also does not need medication started. Serial EKGs Trend LFTs worsening. Consulted GI. FF with Poison control. Morphine IV for pain management Monitor telemetry Started on NAC Start 1/2 NS with KCl as with persistent hypokalemia Follow-up Tylenol level Hypokalemia Supplementation ordered, BMP in am, replace as needed Monitor CMP DVT prophylaxis: SCDs Discussed Condition With Patient, nurse DC plan: Elevated LFTs, Tylenol toxicity, ff poison control recs, GI also consulted and following. Monitor closely, risk of fulminant hepatic failure and might need transfer for liver transplant, evaluation. However LFTs are improving and no need of liver transplant at this time. Seen by psychiatry clear for discharge. The patient was not Anand acted during this admission. Does not meet inpatient psychiatric admission. Discharge when improved and cleared by GI Problem Qualifiers (1) Tylenol toxicity: Qualified Codes: T39.1X1A - Poisoning by 4-aminophenol derivatives, accidental (unintentional), initial encounter (2) Tylenol overdose: Qualified Codes: T39.1X1A - Poisoning by 4-aminophenol derivatives, accidental (unintentional), initial encounter Elsa Cohen MD Sep 04, 2017 08:48
[2017-09-04 08:58] LABS: ALBUMIN 3.5 GM/DL (3.4-5.0); AST (GOT) 166 U/L (15-37); BICARBONATE 19.4 MEQ/L (21.0-32.0); BLOOD UREA NITROGEN 4 MG/DL (7-18); CALCIUM 8.6 MG/DL (8.5-10.1); CHLORIDE 109 MEQ/L (98-107); CREATININE 0.51 MG/DL (0.50-1.00); GLUCOSE,RANDOM 82 MG/DL (74-106); SODIUM (NA) 137 MEQ/L (136-145)
[2017-09-04 09:06] LABS: ALKALINE PHOSPHATASE 49 U/L (45-117); ALT (GPT) 1416 U/L (10-53); TOTAL BILIRUBIN ADULT 0.5 MG/DL (0.2-1.0); TOTAL PROTEIN 6.7 GM/DL (6.4-8.2)
--- NOTE | 2017-09-04 13:03 | HHI.GIFU ---
Subjective Remarks Sitting up in the bed smiling Appears to be feeling much better Family member in room Patient is up ambulating appetite improved (Elma Keller) Objective Vitals I&O Vital Signs Date Time Temp Pulse Resp B/P (MAP) Pulse Ox O2 Delivery O2 Flow Rate FiO2 09/04/17 11:42 69 09/04/17 08:24 97.9 65 17 112/61 (78) 99 09/04/17 07:58 63 09/04/17 07:58 Room Air 09/04/17 04:00 98.2 75 16 137/79 (98) 99 09/04/17 03:57 67 09/04/17 00:00 Room Air 09/04/17 00:00 98.9 68 16 113/62 (79) 99 09/04/17 00:00 69 09/03/17 20:00 98.7 76 18 106/64 (78) 99 09/03/17 20:00 80 09/03/17 19:45 Room Air 09/03/17 15:54 68 I/O 09/03/17 09/03/17 09/03/17 09/04/17 09/04/17 09/04/17 07:00 15:00 23:00 07:00 15:00 23:00 Intake Total 240 ml 1000 ml 520 ml 960 ml Balance 240 ml 1000 ml 520 ml 960 ml Intake Oral 240 ml 520 ml 960 ml IV Total 1000 ml # Voids 3 5 6 # Bowel Movements 0 0 Laboratory Laboratory Tests Test 09/03/17 14:15 09/04/17 08:07 Iron Level 56 Total Iron Binding Capacity 358 Percent Iron Saturation 15.6 Ferritin 71 Prothrombin Time 11.4 Prothromb Time International Ratio 1.1 Blood Urea Nitrogen 4 Creatinine 0.51 Random Glucose 82 Total Protein 6.7 Albumin 3.5 Calcium Level 8.6 Alkaline Phosphatase 49 Aspartate Amino Transf (AST/SGOT) 166 Alanine Aminotransferase (ALT/SGPT) 1416 Total Bilirubin 0.5 Sodium Level 137 Potassium Level 4.2 Chloride Level 109 Carbon Dioxide Level 19.4 Anion Gap 9 Ammonia 28 Physical Exam HEENT: Normocephalic; atraumatic, slim CHEST: Even/unlabored CARDIAC: RRR ABDOMEN: Soft, nondistended, denies any abdominal discomfort, bowel sounds active EXTREMITIES: No clubbing, cyanosis, or edema. SKIN: Normal; no rash; no jaundice. BACK ORDER CLERK: Alert and oriented, smiling (Elma Keller) Assessment and Plan Plan Assessment: - Acetaminophen overdose- pt presented to the ER two days ago after taking 10- 12 Tylenol tablets. Serum acetaminophen level was 98.6 on admission. Poison control notified. Pt has been started on Acetylcysteine. LFTs: AST-505 ALT-650 T bili-1.2 Alk phos-53 PT-18.7 INR-1.8 Hepatitis panel negative. (+) tattoos. Denies IV drug use. Denies ETOH Admits to Marijuana Complaining of: upper abdominal pain, intermittent, sharp. Nausea and vomiting since admission. Diarrhea, one episode today and one yesterday, denies blood in stool. Pt denies personal and family history of liver issues. (09/01) Pt reports some mild upper abdominal pain, poor PO intake. Denies nausea and vomiting. Repeat labs checked last night with significant increase in LFTs. Labs from today pending. Liver US --> Normal right upper quadrant sonogram. No evidence for cholelithiasis. Hepatitis panel negative 09/02/2017 patient is resting in the bed eyes closed but does respond to verbal stimuli. Current labs show mild gradual improvement in her LFTs bilirubin 1.2, AST 860, ALT 2839, patient does note some nausea and vomiting 1 when trying to drink oral potassium. She states she cannot drink the potassium without vomiting at this time. Patient is passing gas but denies any bowel movement for now. ammonia level 40. Patient is getting slow response from Tylenol overdose and toxicity. She is maintained currently on an acetylcysteine drip, encouraged hydration, eating very minimal amounts of food. Dependent on patient 's need she may need transfer to tertiary facility. No current GI procedures needed for now. Liver ultrasound reviewed, coagulation labs reviewed currently INR 1.5. Liver toxicity, will continue to monitor. 09/03/17 Doing good today, no GI issues, no evidence of liver failure, LFTs cont. to trend down. 09/04/2017 patient continues to improve and liver enzymes continue to fall. AST 166 ALT 1416 other liver labs are pending. Patient is eating up in the room current hemoglobin 11.8. Encouraged and supportive care given, as well as the danger of taking Tylenol. Patient agrees Plan: Regular diet Anti-emetics Monitor labs with special attention to her bilirubin and LFTs, coags Avoid hepatotoxins Psych on the case Appears to be continuing to stabilize and improve from a GI standpoint Pt has been seen per myself and Dr. Robison, note is written on her behalf (Elma Keller) Physician Comments seen, examined agree with above (Wendy Robison MD) Elma Keller Sep 04, 2017 13:03 Wendy Robison MD Sep 04, 2017 21:38
[2017-09-05] VITALS: BP 104/59; PULSE 66; PULSE 70; RESP 20; TEMP 98.2; O2SAT 99
[2017-09-05 04:00] VITALS: BP 120/65; PULSE 54; PULSE 65; RESP 18; TEMP 98.2; O2SAT 99
[2017-09-05 08:00] VITALS: BP 107/60; PULSE 76; PULSE 83; RESP 20; TEMP 98.4; O2SAT 98
[2017-09-05] MEDS: DOCUSATE SODIUM 50 MG/SENNA 8.6 MG TAB PO SCH (09:00)
[2017-09-05] MEDS: LACTULOSE SYRUP 20 GM/30 ML CUP PO SCH (09:00)
[2017-09-05] MEDS: SODIUM CHLORIDE 0.9% FLUSH 10 ML FLUSH IV FLUSH SCH (09:00)
--- NOTE | 2017-09-05 10:47 | HHI.GIFU ---
Subjective Remarks Pt is resting comfortably, wants to go home, not voicing any concerns (Shubham Henry) Objective Vitals I&O Vital Signs Date Time Temp Pulse Resp B/P (MAP) Pulse Ox O2 Delivery O2 Flow Rate FiO2 09/05/17 08:00 76 09/05/17 08:00 98.4 83 20 107/60 (76) 98 09/05/17 04:00 98.2 65 18 120/65 (83) 99 09/05/17 04:00 54 09/05/17 00:00 98.2 70 20 104/59 (74) 99 09/05/17 00:00 66 09/04/17 20:00 74 09/04/17 20:00 74 09/04/17 20:00 Room Air 09/04/17 20:00 Room Air 09/04/17 20:00 98.7 70 20 101/64 (76) 97 09/04/17 16:24 98.6 71 16 99/57 (71) 99 09/04/17 15:55 66 09/04/17 12:24 98.5 69 17 107/68 (81) 99 09/04/17 11:42 69 I/O 09/04/17 09/04/17 09/04/17 09/05/17 09/05/17 09/05/17 07:00 15:00 23:00 07:00 15:00 23:00 Intake Total 1960 ml 1000 ml 420 ml 480 ml Balance 1960 ml 1000 ml 420 ml 480 ml Intake Oral 960 ml 420 ml 480 ml IV Total 1000 ml 1000 ml # Voids 6 5 2 # Bowel Movements 1 Laboratory Laboratory Tests Test 09/03/17 14:15 09/04/17 08:07 Iron Level 56 MCG/DL Total Iron Binding Capacity 358 MCG/DL Percent Iron Saturation 15.6 % Ferritin 71 NG/ML Prothrombin Time 11.4 SEC Prothromb Time International Ratio 1.1 RATIO Blood Urea Nitrogen 4 MG/DL Creatinine 0.51 MG/DL Random Glucose 82 MG/DL Total Protein 6.7 GM/DL Albumin 3.5 GM/DL Calcium Level 8.6 MG/DL Alkaline Phosphatase 49 U/L Aspartate Amino Transf (AST/SGOT) 166 U/L Alanine Aminotransferase (ALT/SGPT) 1416 U/L Total Bilirubin 0.5 MG/DL Sodium Level 137 MEQ/L Potassium Level 4.2 MEQ/L Chloride Level 109 MEQ/L Carbon Dioxide Level 19.4 MEQ/L Anion Gap 9 MEQ/L Ammonia 28 MCMOL/L Imaging Last Impressions Liver Ultrasound 08/31/17 0000 Signed Impressions: CONCLUSION: 1. Normal right upper quadrant sonogram. No evidence for cholelithiasis. Head CT 08/29/172120 Signed Impressions: CONCLUSION: 1. No acute intracranial abnormalities. Chest X-Ray 08/29/172120 Signed Impressions: CONCLUSION: No active disease. Physical Exam HEENT: Normocephalic; atraumatic, CHEST: Even/unlabored CARDIAC: RRR ABDOMEN: Soft, nondistended, bowel sounds active EXTREMITIES: No clubbing, cyanosis, or edema. SKIN: Normal; no rash; no jaundice. [employer]ING [employer]: Alert and oriented X 3 (Shubham Henry) Assessment and Plan Plan Assessment: - Acetaminophen overdose- pt presented to the ER two days ago after taking 10- 12 Tylenol tablets. Serum acetaminophen level was 98.6 on admission. Poison control notified. Pt has been started on Acetylcysteine. LFTs: AST-505 ALT-650 T bili-1.2 Alk phos-53 PT-18.7 INR-1.8 Hepatitis panel negative. (+) tattoos. Denies IV drug use. Denies ETOH Admits to Marijuana Complaining of: upper abdominal pain, intermittent, sharp. Nausea and vomiting since admission. Diarrhea, one episode today and one yesterday, denies blood in stool. Pt denies personal and family history of liver issues. (09/01) Pt reports some mild upper abdominal pain, poor PO intake. Denies nausea and vomiting. Repeat labs checked last night with significant increase in LFTs. Labs from today pending. Liver US --> Normal right upper quadrant sonogram. No evidence for cholelithiasis. Hepatitis panel negative 09/02/2017 patient is resting in the bed eyes closed but does respond to verbal stimuli. Current labs show mild gradual improvement in her LFTs bilirubin 1.2, AST 860, ALT 2839, patient does note some nausea and vomiting 1 when trying to drink oral potassium. She states she cannot drink the potassium without vomiting at this time. Patient is passing gas but denies any bowel movement for now. ammonia level 40. Patient is getting slow response from Tylenol overdose and toxicity. She is maintained currently on an acetylcysteine drip, encouraged hydration, eating very minimal amounts of food. Dependent on patient 's need she may need transfer to tertiary facility. No current GI procedures needed for now. Liver ultrasound reviewed, coagulation labs reviewed currently INR 1.5. Liver toxicity, will continue to monitor. 09/03/17 Doing good today, no GI issues, no evidence of liver failure, LFTs cont. to trend down. 09/04/2017 patient continues to improve and liver enzymes continue to fall. AST 166 ALT 1416 other liver labs are pending. Patient is eating up in the room current hemoglobin 11.8. Encouraged and supportive care given, as well as the danger of taking Tylenol. Patient agrees 09/05/17 Denies nausea, vomiting or abd pain, labs for today are being drawn, pt wants to go home Plan: Regular diet Monitor labs Await labs today, if cont to do trend down, may go home from GI stand point Avoid hepatotoxins Psych on the case Pt has been seen per myself and Dr. Robison, note is written on her behalf (Shubham Henry) Shubham Henry Sep 05, 2017 10:47 Wendy Robison MD Sep 05, 2017 21:19
[2017-09-05] MEDS: 1/2 NS + KCL 20 MEQ INJ 1,000 ML IV SCH (11:15)
[2017-09-05 11:39] LABS: INTERNATIONAL NORMALIZED RATIO 1.1 RATIO; PROTHROMBIN TIME - PATIENT 10.7 SEC (9.8-11.6)
[2017-09-05 12:00] VITALS: BP 109/63; PULSE 72; PULSE 81; RESP 20; TEMP 98.4; O2SAT 99
[2017-09-05 12:37] LABS: ALBUMIN 3.8 GM/DL (3.4-5.0); ALKALINE PHOSPHATASE 52 U/L (45-117); ALT (GPT) 1069 U/L (10-53); AST (GOT) 91 U/L (15-37); BICARBONATE 21.7 MEQ/L (21.0-32.0); BLOOD UREA NITROGEN 6 MG/DL (7-18); CALCIUM 9.4 MG/DL (8.5-10.1); CHLORIDE 103 MEQ/L (98-107); CREATININE 0.62 MG/DL (0.50-1.00); GLOMERULAR FILTRATION RATE 115 ML/MIN (>89); GLUCOSE,RANDOM 107 MG/DL (74-106); SODIUM (NA) 136 MEQ/L (136-145); TOTAL BILIRUBIN ADULT 0.4 MG/DL (0.2-1.0); TOTAL PROTEIN 7.3 GM/DL (6.4-8.2)
--- NOTE | 2017-09-05 15:41 | HHI.PR ---
Subjective Remarks Follow-up Tylenol toxicity. She is doing okay denies abdominal pain, nausea and vomiting but she wants to go home. Objective Vitals Vital Signs Date Time Temp Pulse Resp B/P (MAP) Pulse Ox O2 Delivery O2 Flow Rate FiO2 09/05/17 12:00 81 09/05/17 08:00 76 09/05/17 08:00 98.4 83 20 107/60 (76) 98 09/05/17 04:00 98.2 65 18 120/65 (83) 99 09/05/17 04:00 54 09/05/17 00:00 98.2 70 20 104/59 (74) 99 09/05/17 00:00 66 09/04/17 20:00 74 09/04/17 20:00 74 09/04/17 20:00 Room Air 09/04/17 20:00 Room Air 09/04/17 20:00 98.7 70 20 101/64 (76) 97 09/04/17 16:24 98.6 71 16 99/57 (71) 99 09/04/17 15:55 66 I/O 09/04/17 09/04/17 09/04/17 09/05/17 09/05/17 09/05/17 06:59 14:59 22:59 06:59 14:59 22:59 Intake Total 1960 ml 1000 ml 420 ml 480 ml Balance 1960 ml 1000 ml 420 ml 480 ml Intake Oral 960 ml 420 ml 480 ml IV Total 1000 ml 1000 ml # Voids 6 5 2 # Bowel Movements 1 Result Diagram: 09/02/17 0716 09/05/17 1040 Imaging Last Impressions Liver Ultrasound 08/31/17 0000 Signed Impressions: CONCLUSION: 1. Normal right upper quadrant sonogram. No evidence for cholelithiasis. Head CT 08/29/172120 Signed Impressions: CONCLUSION: 1. No acute intracranial abnormalities. Chest X-Ray 08/29/172120 Signed Impressions: CONCLUSION: No active disease. Objective Remarks GENERAL: This is a well-nourished, well-developed patient, in no apparent distress. CARDIOVASCULAR: Regular rate and rhythm without murmurs, gallops, or rubs. RESPIRATORY: Clear to auscultation. Breath sounds equal bilaterally. No wheezes , rales, or rhonchi. GASTROINTESTINAL: Abdomen soft, resolved RUQ tenderness, non distended. No guarding. MUSCULOSKELETAL: Extremities without clubbing, cyanosis, or edema. No calf tenderness. NEUROLOGICAL: Awake and alert. Normal speech. Procedures none A/P Problem List: (1) Tylenol toxicity ICD Code: T39.1X1A - Poisoning by 4-Aminophenol derivatives, accidental ( unintentional), initial encounter Status: Acute (2) Tylenol overdose ICD Code: T39.1X1A - Poisoning by 4-Aminophenol derivatives, accidental ( unintentional), initial encounter Status: Acute (3) Transaminitis ICD Code: R74.0 - Nonspecific elevation of levels of transaminase and lactic acid dehydrogenase [LDH] Status: Acute Assessment and Plan 26 y/o female with no medical history presented to the ED after ingesting 10-12 non aspirin medication in attempt to control her headache migraine. Patient says she did not have any suicidal intent /attempt. Says she has never been depressed Tylenol toxicity, with associated transaminitis, questionable intentional Resolved status post Acetadote. Improving transaminitis but still significantly elevated further management per GI. Currently asymptomatic. Awaiting reply from GI re dc Per psychiatry psychiatry the patient is not Anand acted because does not meet criteria. She is cleared by psychiatry as does not meet inpatient criteria. Patient also does not need medication started. Hypokalemia Supplementation ordered, BMP in am, replace as needed Monitor CMP DVT prophylaxis: SCDs Problem Qualifiers (1) Tylenol toxicity: Qualified Codes: T39.1X1A - Poisoning by 4-aminophenol derivatives, accidental (unintentional), initial encounter (2) Tylenol overdose: Qualified Codes: T39.1X1A - Poisoning by 4-aminophenol derivatives, accidental (unintentional), initial encounter Elder Alexander MD Sep 05, 2017 15:41
--- NOTE | 2017-09-05 15:57 | HHI.DCPOC ---
Discharge Care Plan Diagnosis: (1) Tylenol toxicity Your Health Problems Are: Difficulty with ADL Exercise Tolerance Goals to Promote Your Health * To prevent worsening of your condition and complications * To maintain your health at the optimal level Directions to Meet Your Goals Take your medications as prescribed Follow your dietary instruction Follow activity as directed Keep your appointments as scheduled Take your immunizations and boosters as scheduled If your symptoms worsen call your PCP, if no PCP go to Urgent Care Center or Emergency Room Smoking is Dangerous to Your Health. Avoid second hand smoke Call the 24-hour hour crisis hotline for domestic abuse at Elder Alexander MD Sep 05, 2017 15:57
[2017-09-05 16:00] VITALS: BP 115/62; PULSE 84; RESP 20; TEMP 98.7; O2SAT 100
--- NOTE | 2017-09-05 16:00 | HHI.DS ---
Discharge Summary Admission Date Aug 29, 2017 at 23:52 Discharge Date: Sep 05, 2017 Admitting Diagnosis Tylenol toxicity (1) Tylenol toxicity ICD Code: T39.1X1A - Poisoning by 4-Aminophenol derivatives, accidental ( unintentional), initial encounter Diagnosis: Principal Status: Acute (2) Tylenol overdose ICD Code: T39.1X1A - Poisoning by 4-Aminophenol derivatives, accidental ( unintentional), initial encounter Diagnosis: Principal Status: Acute (3) Transaminitis ICD Code: R74.0 - Nonspecific elevation of levels of transaminase and lactic acid dehydrogenase [LDH] Diagnosis: Principal Status: Acute Procedures none Brief History - From Admission 26 y/o female with no medical history presented to the ED after ingesting 10-12 non aspirin medication. Patient states she took them because she had a headache , and took all 10-12 at once. She states she did not do this to try and hurt her self, but she did look at her significant other when responding so her story does not sound believable. She key not know the name of the medication she took and does not have the bottle with her. She denies any chest pain, but is complaining of right sided, sharp abdominal, 10/10 with no radiation or associated symptoms. Poison control was contacted and is following. CBC/BMP: 09/02/17 0716 09/05/17 1040 Significant Findings Laboratory Tests Test 09/02/17 20:37 09/03/17 07:29 09/03/17 14:15 09/04/17 08:07 Prothrombin Time 13.4 SEC (9.8-11.6) 12.3 SEC (9.8-11.6) Total Bilirubin 1.1 MG/DL (0.2-1.0) Direct Bilirubin 0.4 MG/DL (0.0-0.2) Aspartate Amino Transf (AST/SGOT) 591 U/L (15-37) 386 U/L (15-37) 166 U/L (15-37) Alanine Aminotransferase (ALT/SGPT) 2674 U/L (10-53) 2004 U/L (10-53) 1416 U/L (10-53) Blood Urea Nitrogen 3 MG/DL (7-18) 4 MG/DL (7-18) Creatinine 0.47 MG/DL (0.50-1.00) Random Glucose 72 MG/DL (74-106) Total Protein 6.3 GM/DL (6.4-8.2) Calcium Level 8.3 MG/DL (8.5-10.1) Percent Iron Saturation 15.6 % (20-50) Chloride Level 109 MEQ/L (98-107) Carbon Dioxide Level 19.4 MEQ/L (21.0-32.0) Test 09/05/17 10:40 Blood Urea Nitrogen 6 MG/DL (7-18) Random Glucose 107 MG/DL (74-106) Aspartate Amino Transf (AST/SGOT) 91 U/L (15-37) Alanine Aminotransferase (ALT/SGPT) 1069 U/L (10-53) PE at Discharge GENERAL: This is a well-nourished, well-developed patient, in no apparent distress. CARDIOVASCULAR: Regular rate and rhythm without murmurs, gallops, or rubs. RESPIRATORY: Clear to auscultation. Breath sounds equal bilaterally. No wheezes , rales, or rhonchi. GASTROINTESTINAL: Abdomen soft, resolved RUQ tenderness, non distended. No guarding. MUSCULOSKELETAL: Extremities without clubbing, cyanosis, or edema. No calf tenderness. NEUROLOGICAL: Awake and alert. Normal speech. Hospital Course 26 y/o female with no medical history presented to the ED after ingesting 10-12 non aspirin medication in attempt to control her headache migraine. Patient says she did not have any suicidal intent /attempt. Says she has never been depressed Tylenol toxicity, with associated transaminitis, questionable intentional Resolved status post Acetadote. Improving transaminitis but still significantly elevated further management per GI. Currently asymptomatic. Avoid hepatotoxins (Tylenol products and alcohol) Per psychiatry psychiatry the patient is not Anand acted because does not meet criteria. She is cleared by psychiatry as does not meet inpatient criteria. Patient also does not need medication started. Hypokalemia Supplementation ordered, follow BMP, replace as needed Monitor DVT prophylaxis: SCDs Pt Condition on Discharge: Stable Discharge Disposition: Discharge Home Discharge Time: <= 30 minutes Discharge Instructions DIET: Follow Instructions for: As Tolerated, No Restrictions Activities you can perform: Regular-No Restrictions Activities to Avoid: Driving Other Activity Instructions: No OTC avoid alcohol and tylenol products Follow up Referrals: Gastroenterology - 1 Week PCP Follow-up - 1 Week New Orders: COMP MET PROF (CMP) - 2 Weeks Medication Profile: No Active Prescriptions or Reported Meds Elder Alexander MD Sep 05, 2017 16:00
[2017-09-06 13:48] LABS: SMOOTH MUSCLE TOTAL AUTOABS Negative (Negative)
[2017-09-06 15:24] LABS: ALPHA-1-ANTITRYPSIN 176 mg/dL (100 - 190)
== END 2017-09-05 18:59 | disposition home or self-care (01) | DRG 918 ==
LOC: NEPE 21:06 → NEDA 23:52 → NEPHCDU 08-30 02:25 → N04B 08-30 23:09
PROVIDERS: ADMIT Internal Medicine; ATTEND Internal Medicine
DX: T39.1X1A Poisoning by 4-Aminophenol derivatives, accidental (unintentional), initial encounter (principal); R74.0 Nonspecific elevation of levels of transaminase and lactic acid dehydrogenase [LDH]; F43.21 Adjustment disorder with depressed mood; R00.1 Bradycardia, unspecified; E87.6 Hypokalemia; R11.2 Nausea with vomiting, unspecified; R19.7 Diarrhea, unspecified; R10.13 Epigastric pain; F12.90 Cannabis use, unspecified, uncomplicated; J45.909 Unspecified asthma, uncomplicated; Z72.0 Tobacco use
CPT/HCPCS: 70450; 71045; 76705; 80053; 80074; 80076; 80307; 81001; 82103; 82140; 82390; 82728; 82784; 83516; 83520; 83540; 83550; 83735; 83930; 83935; 84702; 85025; 85610; 85730; 86255; 93005; 96361; 96374; J0132; J0780; J2765; J3480; J7030; J7060; J7070